=== PATIENT | female | born 1980 | race Caucasian/White ===

== ENCOUNTER 2018-04-13 16:28 | Inpatient (IN) | payer OTHER ==
--- NOTE | 2018-04-13 22:03 | HP ---
CIWA Score - Admission Criteria [facility] Guidelines: Admission for Medically Managed Detox: Requires at least one of the followin. CIWA greater than 12 2. Seizures within the past 24 hours 3. Delirium tremens within the past 24 hours 4. Hallucinations within the past 24 hours 5. Acute intervention needed for co occurring medical disorder 6. Acute intervention needed for co occurring psychiatric disorder 7. Severe withdrawal that cannot be handled at a lower level of care (continued vomiting, continued diarrhea, abnormal vital signs) requiring intravenous medication and/or fluids 8. Admission ROS S - HPI Chief Complaint: SEEKING REHAB SERVICES FOR CANNABIS DEPENDENCE Allergies/Adverse Reactions: Allergies Allergy/AdvReac Type Severity Reaction Status Date / Time No Known Allergies Allergy Verified 04/13/18 21:15 History of Present Illness: 37 Y.O. FEMALE WITH HX/O OPIOID DEPENDENCE AND CANNABIS ABUSE HERE FOR REHAB SERVICES. CLIENT WAS REFERRED BY HER OUTPATIENT COUNSELOR. THIS IS HER FIRST TIME HERE. SHE IS CURRENTLY ON METHADONE 110 MG DAILY. REPORTS LDM TODAY. PENDING VERIFICATION. SHE ATTENDS [facility]. CLIENT REPORTS LONGEST CLEAN TIME IN THE PAST YEAR WAS 3 MONTHS RELAPSING RECENTLY. DENIES SI/HI, AVH, SEIZURE D/O. SHE CURRENTLY LIVES WITH FAMILY. DENIES LEGALS. PMHX- ASTHMA PSYCH- ANXIETY, BIPOLAR, INSOMNIA Exam Limitations: No Limitations - Ebola screening Have you traveled outside of the country in the last 21 days: No (N) Have you had contact with anyone from an Ebola affected area: No Do you have a fever: No - Review of Systems Constitutional: Changes in sleep EENT: reports: No Symptoms Reported Respiratory: reports: No Symptoms reported Cardiac: reports: No Symptoms Reported GI: reports: Constipated, Poor Fluid Intake : reports: No Symptoms Reported Musculoskeletal: reports: Back Pain (CHRONIC) Integumentary: reports: No Symptoms Reported Neuro: reports: Headache (MIGRAINES) Endocrine: reports: No Symptoms Reported Hematology: reports: Easy Bruising Psychiatric: reports: Anxious, Depressed Other Systems: Reviewed and Negative Patient History - Patient Medical History Hx Anemia: No Hx Asthma: Yes Hx Chronic Obstructive Pulmonary Disease (COPD): No Hx Cancer: No Hx Cardiac Disorders: No Hx Congestive Heart Failure: No Hx Hypertension: No Hx Hypercholesterolemia: No Hx Pacemaker: No HX Cerebrovascular Accident: No Hx Seizures: No Hx Dementia: No Hx Diabetes: No Hx Gastrointestinal Disorders: No Hx Liver Disease: No Hx Genitourinary Disorders: No Hx Sexually Transmitted Disorders: No Hx Renal Disease (ESRD): No Hx Thyroid Disease: No Hx Human Immunodeficiency Virus (HIV): No Hx Hepatitis C: No Hx Depression: Yes Hx Suicide Attempt: No Hx Bipolar Disorder: Yes Hx Schizophrenia: No Other Medical History: ANXIETY - Patient Surgical History Past Surgical History: Yes Hx Section: Yes (X3) Anesthesia Reaction: No - PPD History Previous Implant?: Yes Documented Results: Negative w/o proof Implanted On Prior R Admission?: No PPD to be Administered?: Yes - Reproductive History Patient is a Female of Child Bearing Age (11 -55 yrs old): Yes Last Menstrual Period: 04/13/18 LMP comment: IRREG Patient : No (NEG UHCG) - Smoking Cessation Smoking history: Current every day smoker Have you smoked in the past 12 months: Yes Aproximately how many cigarettes per day: 8 Cigars Per Day: 0 Hx Chewing Tobacco Use: No Initiated information on smoking cessation: Yes 'Breaking Loose' booklet given: 04/13/18 - Substance & Tx. History Hx Alcohol Use: Yes Hx Substance Use: Yes Substance Use Type: Alcohol, Heroin, Marijuana, Prescribed (METHADONE) Hx Substance Use Treatment: Yes ([facility]) - Substances Abused THC Route: Smoking Frequency: Daily Amount used: 2 BLUNTS Age of first use: 21 Date of Last Use: 04/12/18 Family Disease History - Family Disease History Family Disease History: Other: Father (HEROIN ADDICITION), Mother (COPD, RA, CIRROHSIS) Admission Physical Exam [facility] - Physical General Appearance: Yes: No Apparent Distress, Appropriately Dressed, Anxious HEENTM: Yes: EOMI, Normocephalic, Normal Voice, [place], Pharynx Normal Respiratory: Yes: Chest Non-Tender, Lungs Clear, Normal Breath Sounds, No Respiratory Distress, No Accessory Muscle Use Neck: Yes: No masses,lesions,Nodules, Supple, Trachea in good position Breast: Yes: Breast Exam Deferred Cardiology: Yes: Regular Rhythm, Regular Rate, S1, S2 Abdominal: Yes: Normal Bowel Sounds, Non Tender, Soft, Protuberent Genitourinary: Yes: Within Normal Limits (NO C/O) Back: Yes: Normal Inspection Musculoskeletal: Yes: full range of Motion, Gait Steady Extremities: Yes: Normal Capillary Refill, Normal Range of Motion, Non-Tender Neurological: Yes: Fully Oriented, Alert, Motor Strength 5/5 Integumentary: Yes: Dry, Warm Lymphatic: Yes: Within Normal Limits - Diagnostic (1) Methadone maintenance therapy patient Current Visit: Yes Status: Chronic (2) Cannabis dependence, uncomplicated Current Visit: Yes Status: Chronic (3) Constipation Current Visit: Yes Status: Acute Qualifiers: Constipation type: drug induced constipation Qualified Code(s): K59.03 - Drug induced constipation (4) Anxiety Current Visit: Yes Status: Suspected (5) Bipolar 1 disorder Current Visit: Yes Status: Suspected (6) Asthma Current Visit: Yes Status: Chronic Qualifiers: Asthma severity: mild Asthma persistence: intermittent Asthma complication type: uncomplicated Qualified Code(s): J45.20 - Mild intermittent asthma, uncomplicated (7) Nicotine dependence Current Visit: Yes Status: Chronic Qualifiers: Nicotine product type: cigarettes Substance use status: uncomplicated Qualified Code(s): F17.210 - Nicotine dependence, cigarettes, uncomplicated Cleared for Admission [facility] - Detox or Rehab Detox Regimen/Protocol: Not Applicable Claeared for Rehab Admission: Yes Inpatient Rehab Admission - Initial Determination Are CD services needed?: Yes Free of communicable disease: Yes Not in need of hospitalization: Yes - Rehab Admission Criteria Previous failed treatment: Yes Poor recovery environment: Yes Comorbidities: Yes Lacks judgement: No Patient is meeting Inpatient Rehab admission criteria:: Yes
[2018-04-13] MEDS ORDERED: hydrOXYzine PAMOATE 50 MG CAPSULE (FP) PO PRN (22:14)
[2018-04-13] MEDS ORDERED: MAGNESIUM CITRATE 300 ML BOTTLE PO PRN (22:14)
[2018-04-13] MEDS ORDERED: LOPERAMIDE HCL 2 MG CAPSULE PO PRN (22:14)
[2018-04-13] MEDS ORDERED: MENTHOL/PHENOL 1 EACH UD MM PRN (22:14)
[2018-04-13] MEDS ORDERED: MAG HYDROX/AL HYDROX/SIMETH 30 ML UNIT-DOSE CUP PO PRN (22:14)
[2018-04-13] MEDS ORDERED: ALBUTEROL SO4 8 GM HFA INHALER IH SCH (22:15)
[2018-04-13] MEDS ORDERED: ALBUTEROL SO4 2.5/IPRATROPIUM 0.5 INH SOL 3 ML VIAL.NEB. NEB PRN (22:16)
[2018-04-13] MEDS ORDERED: ALBUTEROL SO4 8 GM HFA INHALER IH PRN (23:48)
[2018-04-14] MEDS: MELATONIN 5 MG TABLETS PO PRN ×2 (00:07→21:20)
[2018-04-14] MEDS: ACETAMINOPHEN 325 MG TABLET (FP) PO PRN ×2 (06:08→22:39)
[2018-04-14] MEDS: NICOTINE POLACRILEX 2 MG GUM BC PRN ×3 (08:20→17:02)
[2018-04-14] MEDS ORDERED: METHADONE HCL 10 MG TABLET PO SCH (09:00)
[2018-04-14] MEDS: NICOTINE 14 MG/24 HOURS TOPICAL PATCH TD SCH (09:53)
[2018-04-14] MEDS: PRENATAL VITAMINS W/ FOLIC ACID TABLET (FP) PO SCH (09:54)
[2018-04-14 10:37] LABS: HEMATOCRIT 38.1 % (32.4-45.2); HEMOGLOBIN 12.2 GM/dL (10.7-15.3); MCH 32.2 pg (25.7-33.7); MCHC 32.2 g/dl (32.0-36.0); MEAN CELL VOLUME 99.9 fl (80-96); MEAN PLT VOLUME 10.2 fl (7.5-11.1); PLATELET COUNT 134 K/MM3 (134-434); RBC 3.81 M/mm3 (3.60-5.2); RDW 13.1 % (11.6-15.6); WHITE BLOOD COUNT 8.7 K/mm3 (4.0-10.0)
[2018-04-14] MEDS ORDERED: METHADONE HCL 40 MG DISPERSABLE TABLET ONE (10:46)
[2018-04-14] MEDS ORDERED: METHADONE HCL 10 MG TABLET ONE (10:46)
[2018-04-14] MEDS: METHADONE 80 MG, METHADONE 30 MG PO SCH (10:48)
[2018-04-14 10:57] LABS: ALBUMIN 3.3 g/dl (3.4-5.0); ALK PHOS 116 U/L (45-117); ANION GAP 10 MMOL/L (8-16); BILIRUBIN,TOTAL 0.5 mg/dL (0.2-1); BLOOD UREA NITROGEN 13 mg/dL (7-18); CALCIUM 8.4 mg/dL (8.5-10.1); CHLORIDE 100 mmol/L (98-107); CO2 25 mmol/L (21-32); CREATININE 0.7 mg/dL (0.55-1.3); GLUCOSE,RANDOM 114 mg/dL (74-106); SGOT/AST 20 U/L (15-37); SGPT/ALT 27 U/L (13-61); SODIUM 135 mmol/L (136-145); TOT PROT 6.7 g/dl (6.4-8.2)
[2018-04-14] MEDS: IBUPROFEN 400 MG TABLET (FP) PO PRN ×2 (14:28→21:20)
[2018-04-14] MEDS: guaiFENesin/D-METHORPHAN HB 10 ML UNIT-DOSE CUPS PO PRN (14:31)
--- NOTE | 2018-04-14 14:54 | PN ---
[facility] Progress Note Note: Called by nursing staff to order medication for newly admitted patient from [facility]. Medication reconciliation done. Seroquel 100 mg po HS ordered
--- NOTE | 2018-04-14 15:15 | EKG ---
Test Reason : Blood Pressure : / mmHG Vent. Rate : 088 BPM Atrial Rate : 088 BPM P-R Int : 160 ms QRS Dur : 082 ms QT Int : 376 ms P-R-T Axes : 060 063 035 degrees QTc Int : 454 ms NORMAL SINUS RHYTHM NORMAL ECG NO PREVIOUS ECGS AVAILABLE Confirmed by Sina Joya ([id number]) on 04/14/2018 3:15:36 PM Referred By: Confirmed By:Sina Joya
[2018-04-14 19:24] LABS: URINE APPEARANCE CLOUDY; URINE BILIRUBIN NEGATIVE (<2.0 mg/dL); URINE COLOR AMBER; URINE GLUCOSE (UA) NEGATIVE (NEGATIVE); URINE KETONE NEGATIVE (NEGATIVE); URINE LEUK ESTERASE 2+ (NEGATIVE); URINE NITRITE POSITIVE (NEGATIVE); URINE PROTEIN 2+ (NEGATIVE); URINE UROBILINOGEN 4.0 E.U/dl mg/dL (0.2-1.0)
[2018-04-14 19:36] LABS: EPI CELLS RARE /HPF (FEW); URINE BACTERIA MODERATE /hpf (NONE SEEN)
[2018-04-14] MEDS: QUEtiapine FUMARATE 100 MG TABLET (FP) PO SCH (21:19)
[2018-04-14] MEDS: THIAMINE HCL 100 MG TABLET (FP) PO SCH (21:19)
[2018-04-14] MEDS: P-EPHED 60MG/TRIPROLIDI 2.5MG TABLET PO PRN (21:20)
[2018-04-14] MEDS ORDERED: QUEtiapine FUMARATE 100 MG TABLET (FP) PO SCH (22:00)
[2018-04-15] MEDS ORDERED: METHADONE HCL 40 MG DISPERSABLE TABLET ONE (03:30)
[2018-04-15] MEDS ORDERED: METHADONE HCL 10 MG TABLET ONE (03:30)
[2018-04-15] MEDS: METHADONE 80 MG, METHADONE 30 MG PO SCH (06:33)
[2018-04-15] MEDS: ACETAMINOPHEN 325 MG TABLET (FP) PO PRN (06:33)
[2018-04-15] MEDS: NICOTINE POLACRILEX 2 MG GUM BC PRN ×4 (07:06→21:31)
--- NOTE | 2018-04-15 07:16 | PN ---
[facility] Progress Note Note: CLIENT SEEN FOR FOR FEVER 24 hours. NOW WITH C/O HEADACHE, PRESSURE IN HER HEAD WHEN COUGHING AND/OR BENDING OVER, NON PRODUCTIVE COUGH CHILLS. DENIES ANY C/O, SORE THROAT, SOB, RECENT CONTACT WITH ILL PERSONS, . Vital Signs (72 hours) 04/14/18 04/14/18 04/14/18 00:10 01:09 03:54 Temperature 99.2 F Pulse Rate 98 H Respiratory 20 18 18 Rate Blood Pressure 114/80 04/14/18 04/15/18 07:29 03:30 Temperature 101.3 F H Pulse Rate 106 H Respiratory 16 18 Rate Blood Pressure 120/71 Laboratory Tests 04/14/18 04/14/18 04/14/18 08:00 08:00 08:00 WBC 8.7 RBC 3.81 Hgb 12.2 Hct 38.1 MCV 99.9 H MCH 32.2 MCHC 32.2 RDW 13.1 Plt Count 134 MPV 10.2 Sodium 135 L Potassium 4.0 Chloride 100 Carbon Dioxide 25 Anion Gap 10 BUN 13 Creatinine 0.7 Creat Clearance w eGFR > 60 Random Glucose 114 H Calcium 8.4 L Total Bilirubin 0.5 AST 20 ALT 27 Alkaline Phosphatase 116 Total Protein 6.7 Albumin 3.3 L Urine Color Urine Appearance Urine pH Ur Specific [place] Urine Protein Urine Glucose (UA) Urine Ketones Urine Blood Urine Nitrite Urine Bilirubin Urine Urobilinogen Ur Leukocyte Esterase Urine WBC (Auto) Urine RBC (Auto) Ur Epithelial Cells Urine Bacteria RPR Titer Nonreactive 04/14/18 17:30 WBC RBC Hgb Hct MCV MCH MCHC RDW Plt Count MPV Sodium Potassium Chloride Carbon Dioxide Anion Gap BUN Creatinine Creat Clearance w eGFR Random Glucose Calcium Total Bilirubin AST ALT Alkaline Phosphatase Total Protein Albumin Urine Color Sherri Urine Appearance Cloudy Urine pH 5.0 Ur Specific [place] 1.025 Urine Protein 2+ H Urine Glucose (UA) Negative Urine Ketones Negative Urine Blood 3+ H Urine Nitrite Positive Urine Bilirubin Negative Urine Urobilinogen 4.0 e.u/dl H Ur Leukocyte Esterase 2+ H Urine WBC (Auto) 299 Urine RBC (Auto) 2404 Ur Epithelial Cells Rare Urine Bacteria Moderate RPR Titer EXAMINED AT BEDSIDE A/O X3 NAD SKIN IS WARM FLUSHED AND MOIST HEAD- + TENDERNESS TO SINUSES ON PALPATION, PERFORATED SEPTUM THROAT- MMM NO REDNESS OR EXUDATE NECK - NEG LAD CV RR TACHY, S1, S2 LUNGS- CTAB LABS NOTED CLIENT IS CURRENTLY ON MENSES. P-CONTINUE TO MONITOR ANTIPYRETICS INCREASE PO FLUIDS START Z- PACK FOR POSSIBLE SINUSITIS
[2018-04-15] MEDS ORDERED: AZITHROMYCIN 250 MG TABLET PO ONE (07:52)
[2018-04-15] MEDS: PRENATAL VITAMINS W/ FOLIC ACID TABLET (FP) PO SCH (10:44)
[2018-04-15] MEDS: NICOTINE 14 MG/24 HOURS TOPICAL PATCH TD SCH (10:44)
[2018-04-15] MEDS: guaiFENesin/D-METHORPHAN HB 10 ML UNIT-DOSE CUPS PO PRN ×2 (10:47→21:30)
[2018-04-15] MEDS: MAGNESIUM HYDROX 2400MG/30ML ORAL SUSPENSION 30 ML CUP PO PRN (10:48)
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
[2018-04-15] MEDS: hydrOXYzine PAMOATE 50 MG CAPSULE (FP) PO PRN ×2 (15:41→19:54)
[2018-04-15] MEDS: THIAMINE HCL 100 MG TABLET (FP) PO SCH (21:29)
[2018-04-15] MEDS: QUEtiapine FUMARATE 100 MG TABLET (FP) PO SCH (21:29)
[2018-04-15] MEDS: IBUPROFEN 400 MG TABLET (FP) PO PRN (21:29)
[2018-04-16] MEDS ORDERED: METHADONE HCL 40 MG DISPERSABLE TABLET ONE (03:17)
[2018-04-16] MEDS ORDERED: METHADONE HCL 10 MG TABLET ONE (03:17)
[2018-04-16] MEDS: METHADONE 80 MG, METHADONE 30 MG PO SCH (06:29)
[2018-04-16] MEDS: hydrOXYzine PAMOATE 50 MG CAPSULE (FP) PO PRN ×3 (06:31→21:48)
[2018-04-16] MEDS: guaiFENesin/D-METHORPHAN HB 10 ML UNIT-DOSE CUPS PO PRN ×2 (06:31→21:48)
[2018-04-16] MEDS: IBUPROFEN 400 MG TABLET (FP) PO PRN ×2 (06:31→13:59)
[2018-04-16] MEDS: NICOTINE POLACRILEX 2 MG GUM BC PRN ×4 (06:33→21:49)
[2018-04-16] MEDS: PRENATAL VITAMINS W/ FOLIC ACID TABLET (FP) PO SCH (10:41)
[2018-04-16] MEDS: AZITHROMYCIN 250 MG TABLET PO SCH (10:41)
[2018-04-16] MEDS: NICOTINE 14 MG/24 HOURS TOPICAL PATCH TD SCH (10:41)
[2018-04-16] MEDS: MAGNESIUM HYDROX 2400MG/30ML ORAL SUSPENSION 30 ML CUP PO PRN (13:58)
[2018-04-16] MEDS: QUEtiapine FUMARATE 100 MG TABLET (FP) PO SCH (21:45)
[2018-04-16] MEDS: THIAMINE HCL 100 MG TABLET (FP) PO SCH (21:45)
[2018-04-16] MEDS: ACETAMINOPHEN 325 MG TABLET (FP) PO PRN (21:48)
[2018-04-17] MEDS ORDERED: METHADONE HCL 10 MG TABLET ONE (05:58)
[2018-04-17] MEDS ORDERED: METHADONE HCL 40 MG DISPERSABLE TABLET ONE (05:59)
[2018-04-17] MEDS: METHADONE 80 MG, METHADONE 30 MG PO SCH (06:27)
[2018-04-17] MEDS: hydrOXYzine PAMOATE 50 MG CAPSULE (FP) PO PRN (06:30)
[2018-04-17] MEDS: NICOTINE POLACRILEX 2 MG GUM BC PRN ×3 (06:32→14:33)
[2018-04-17] MEDS: PRENATAL VITAMINS W/ FOLIC ACID TABLET (FP) PO SCH (10:39)
[2018-04-17] MEDS: NICOTINE 14 MG/24 HOURS TOPICAL PATCH TD SCH (10:39)
[2018-04-17] MEDS: AZITHROMYCIN 250 MG TABLET PO SCH (10:39)
[2018-04-17] MEDS: ACETAMINOPHEN 325 MG TABLET (FP) PO PRN ×2 (10:43→21:54)
[2018-04-17] MEDS: guaiFENesin/D-METHORPHAN HB 10 ML UNIT-DOSE CUPS PO PRN ×2 (10:43→21:55)
[2018-04-17] MEDS: LIDOCAINE 5% TOPICAL PATCH TP SCH (15:54)
[2018-04-17] MEDS: THIAMINE HCL 100 MG TABLET (FP) PO SCH (21:51)
[2018-04-17] MEDS: LIDOCAINE PATCH REMOVAL MC SCH (21:51)
[2018-04-17] MEDS: QUEtiapine FUMARATE 100 MG TABLET (FP) PO SCH (21:51)
[2018-04-17] MEDS: P-EPHED 60MG/TRIPROLIDI 2.5MG TABLET PO PRN (21:55)
[2018-04-18] MEDS ORDERED: METHADONE HCL 40 MG DISPERSABLE TABLET ONE (03:24)
[2018-04-18] MEDS ORDERED: METHADONE HCL 10 MG TABLET ONE (03:24)
[2018-04-18] MEDS: METHADONE 80 MG, METHADONE 30 MG PO SCH (06:30)
[2018-04-18] MEDS: NICOTINE POLACRILEX 2 MG GUM BC PRN ×5 (06:32→18:00)
[2018-04-18] MEDS: NICOTINE 14 MG/24 HOURS TOPICAL PATCH TD SCH (10:40)
[2018-04-18] MEDS: PRENATAL VITAMINS W/ FOLIC ACID TABLET (FP) PO SCH (10:40)
[2018-04-18] MEDS: LIDOCAINE 5% TOPICAL PATCH TP SCH (10:40)
[2018-04-18] MEDS: AZITHROMYCIN 250 MG TABLET PO SCH (10:40)
[2018-04-18] MEDS: guaiFENesin/D-METHORPHAN HB 10 ML UNIT-DOSE CUPS PO PRN ×2 (10:43→21:35)
[2018-04-18] MEDS: hydrOXYzine PAMOATE 50 MG CAPSULE (FP) PO PRN ×2 (15:26→21:35)
--- NOTE | 2018-04-18 18:04 | PN ---
[facility] Progress Note Note: Psychiatry Attending's on-call note : Called to adjust patient's medication. Complaint : insomnia. Met with Ms Suarez. Seroquel 100 mg/hs : not effective. According to patient. Wants dose increase. Made aware of risk of metabolic syndrome. Seroquel is increased to 150 mg po hs. Patient agrees to this careplan.
[2018-04-18] MEDS: QUEtiapine FUMARATE 50 MG TABLET PO SCH (21:34)
[2018-04-18] MEDS: LIDOCAINE PATCH REMOVAL MC SCH (21:34)
[2018-04-18] MEDS: THIAMINE HCL 100 MG TABLET (FP) PO SCH (21:35)
[2018-04-18] MEDS: MELATONIN 5 MG TABLETS PO PRN (21:35)
[2018-04-18] MEDS ORDERED: TUBERCULIN PPD 5 TU/0.1ML VIAL ID ONE (23:08)
[2018-04-19] MEDS ORDERED: METHADONE HCL 10 MG TABLET ONE (05:59)
[2018-04-19] MEDS ORDERED: METHADONE HCL 40 MG DISPERSABLE TABLET ONE (05:59)
[2018-04-19] MEDS: METHADONE 80 MG, METHADONE 30 MG PO SCH (06:24)
[2018-04-19] MEDS: NICOTINE POLACRILEX 2 MG GUM BC PRN ×4 (06:26→21:51)
[2018-04-19] MEDS: hydrOXYzine PAMOATE 50 MG CAPSULE (FP) PO PRN ×3 (06:26→21:50)
[2018-04-19] MEDS: NICOTINE 14 MG/24 HOURS TOPICAL PATCH TD SCH (10:35)
[2018-04-19] MEDS: LIDOCAINE 5% TOPICAL PATCH TP SCH (10:35)
[2018-04-19] MEDS: AZITHROMYCIN 250 MG TABLET PO SCH (10:36)
[2018-04-19] MEDS: PRENATAL VITAMINS W/ FOLIC ACID TABLET (FP) PO SCH (10:36)
[2018-04-19] MEDS: MAGNESIUM HYDROX 2400MG/30ML ORAL SUSPENSION 30 ML CUP PO PRN (10:38)
[2018-04-19] MEDS: guaiFENesin/D-METHORPHAN HB 10 ML UNIT-DOSE CUPS PO PRN (10:40)
--- NOTE | 2018-04-19 12:40 | PN ---
[facility] Progress Note Note: stye of right upper eyelid for 2 days, tobramycin oph slon 0.3 % 1 gtt to right eye q 6 h observation
[2018-04-19] MEDS ORDERED: PT OWN MED DRAWER 7, Y5N ONE ×2 (14:57→18:20)
[2018-04-19] MEDS: TOBRAMYCIN 0.3% OPHTH SOLN 5 ML BOTTLE OD SCH (18:21)
[2018-04-19] MEDS: LIDOCAINE PATCH REMOVAL MC SCH (21:49)
[2018-04-19] MEDS: THIAMINE HCL 100 MG TABLET (FP) PO SCH (21:49)
[2018-04-19] MEDS: QUEtiapine FUMARATE 50 MG TABLET PO SCH (21:49)
[2018-04-19] MEDS: MELATONIN 5 MG TABLETS PO PRN (21:50)
[2018-04-20] MEDS: TOBRAMYCIN 0.3% OPHTH SOLN 5 ML BOTTLE OD SCH ×5 (01:20→23:11)
[2018-04-20] MEDS: IBUPROFEN 400 MG TABLET (FP) PO PRN (01:21)
[2018-04-20] MEDS ORDERED: METHADONE HCL 10 MG TABLET ONE (03:30)
[2018-04-20] MEDS ORDERED: METHADONE HCL 40 MG DISPERSABLE TABLET ONE (03:30)
[2018-04-20] MEDS: METHADONE 80 MG, METHADONE 30 MG PO SCH (06:33)
[2018-04-20] MEDS: hydrOXYzine PAMOATE 50 MG CAPSULE (FP) PO PRN ×3 (06:36→21:22)
[2018-04-20] MEDS: guaiFENesin/D-METHORPHAN HB 10 ML UNIT-DOSE CUPS PO PRN ×2 (06:36→21:22)
[2018-04-20] MEDS: NICOTINE POLACRILEX 2 MG GUM BC PRN ×5 (06:36→21:24)
[2018-04-20] MEDS: NICOTINE 14 MG/24 HOURS TOPICAL PATCH TD SCH (10:36)
[2018-04-20] MEDS: LIDOCAINE 5% TOPICAL PATCH TP SCH (10:36)
[2018-04-20] MEDS: PRENATAL VITAMINS W/ FOLIC ACID TABLET (FP) PO SCH (10:36)
[2018-04-20] MEDS: ERYTHROMYCIN 0.5% OPHTHALMIC OINTMENT 3.5 GM TUBE OU SCH (15:55)
[2018-04-20] MEDS ORDERED: PT OWN MED DRAWER 7, Y5N ONE (17:25)
[2018-04-20] MEDS: THIAMINE HCL 100 MG TABLET (FP) PO SCH (21:19)
[2018-04-20] MEDS: QUEtiapine FUMARATE 50 MG TABLET PO SCH (21:20)
[2018-04-20] MEDS: LIDOCAINE PATCH REMOVAL MC SCH (21:20)
[2018-04-20] MEDS: MELATONIN 5 MG TABLETS PO PRN (21:22)
[2018-04-21] MEDS ORDERED: METHADONE HCL 10 MG TABLET ONE (05:56)
[2018-04-21] MEDS ORDERED: METHADONE HCL 40 MG DISPERSABLE TABLET ONE (05:56)
[2018-04-21] MEDS: METHADONE 80 MG, METHADONE 30 MG PO SCH (06:33)
[2018-04-21] MEDS: TOBRAMYCIN 0.3% OPHTH SOLN 5 ML BOTTLE OD SCH ×3 (06:34→18:20)
[2018-04-21] MEDS: NICOTINE POLACRILEX 2 MG GUM BC PRN ×5 (06:38→21:15)
[2018-04-21] MEDS: PRENATAL VITAMINS W/ FOLIC ACID TABLET (FP) PO SCH (10:31)
[2018-04-21] MEDS: NICOTINE 14 MG/24 HOURS TOPICAL PATCH TD SCH (10:32)
[2018-04-21] MEDS: ERYTHROMYCIN 0.5% OPHTHALMIC OINTMENT 3.5 GM TUBE OU SCH (10:32)
[2018-04-21] MEDS: LIDOCAINE 5% TOPICAL PATCH TP SCH (10:32)
[2018-04-21] MEDS: hydrOXYzine PAMOATE 50 MG CAPSULE (FP) PO PRN ×2 (10:33→19:21)
[2018-04-21] MEDS: guaiFENesin/D-METHORPHAN HB 10 ML UNIT-DOSE CUPS PO PRN (19:24)
[2018-04-21] MEDS: QUEtiapine FUMARATE 50 MG TABLET PO SCH (21:13)
[2018-04-21] MEDS: THIAMINE HCL 100 MG TABLET (FP) PO SCH (21:13)
[2018-04-21] MEDS: MELATONIN 5 MG TABLETS PO PRN (21:14)
[2018-04-21] MEDS: LIDOCAINE PATCH REMOVAL MC SCH (21:14)
[2018-04-21] MEDS ORDERED: PT OWN MED DRAWER 7, Y5N ONE (23:52)
[2018-04-22] MEDS: TOBRAMYCIN 0.3% OPHTH SOLN 5 ML BOTTLE OD SCH ×4 (00:15→18:30)
[2018-04-22] MEDS ORDERED: METHADONE HCL 40 MG DISPERSABLE TABLET ONE (05:51)
[2018-04-22] MEDS ORDERED: METHADONE HCL 10 MG TABLET ONE (05:51)
[2018-04-22] MEDS: METHADONE 80 MG, METHADONE 30 MG PO SCH (06:37)
[2018-04-22] MEDS: NICOTINE POLACRILEX 2 MG GUM BC PRN ×3 (06:38→13:41)
[2018-04-22] MEDS: TRIMETHOBENZAMIDE HCL 200MG/2ML INJ IM PRN ×2 (07:18→13:21)
[2018-04-22] MEDS ORDERED: CYCLOBENZAPRINE HCL 10 MG TABLET (FP) PO ONE (09:05)
[2018-04-22] MEDS ORDERED: cloNIDine HCL 0.1 MG TABLET PO ONE (09:05)
--- NOTE | 2018-04-22 09:09 | PN ---
[facility] Progress Note Note: withdrawal symptom vomiting,aching pain,receiving tigan im will give flexeril 10 mgs po,clonidine 0.1 mg po now close monitoring
[2018-04-22] MEDS: LIDOCAINE 5% TOPICAL PATCH TP SCH (10:05)
[2018-04-22] MEDS: PRENATAL VITAMINS W/ FOLIC ACID TABLET (FP) PO SCH (10:05)
[2018-04-22] MEDS: NICOTINE 14 MG/24 HOURS TOPICAL PATCH TD SCH (10:05)
[2018-04-22] MEDS: hydrOXYzine PAMOATE 50 MG CAPSULE (FP) PO PRN ×3 (10:06→21:41)
[2018-04-22] MEDS: ERYTHROMYCIN 0.5% OPHTHALMIC OINTMENT 3.5 GM TUBE OU SCH (10:07)
[2018-04-22] MEDS ORDERED: PT OWN MED DRAWER 7, Y5N ONE (16:47)
[2018-04-22] MEDS: CYCLOBENZAPRINE HCL 10 MG TABLET (FP) PO PRN (21:41)
[2018-04-22] MEDS: QUEtiapine FUMARATE 50 MG TABLET PO SCH (21:41)
[2018-04-22] MEDS: LIDOCAINE PATCH REMOVAL MC SCH (21:41)
[2018-04-22] MEDS: MELATONIN 5 MG TABLETS PO PRN (21:41)
[2018-04-22] MEDS: THIAMINE HCL 100 MG TABLET (FP) PO SCH (22:35)
[2018-04-22] MEDS: cloNIDine HCL 0.1 MG TABLET PO SCH (23:54)
[2018-04-23] MEDS: TOBRAMYCIN 0.3% OPHTH SOLN 5 ML BOTTLE OD SCH ×5 (01:01→23:33)
[2018-04-23] MEDS ORDERED: METHADONE HCL 40 MG DISPERSABLE TABLET ONE (03:13)
[2018-04-23] MEDS ORDERED: METHADONE HCL 10 MG TABLET ONE (03:13)
[2018-04-23] MEDS: METHADONE 80 MG, METHADONE 30 MG PO SCH (06:13)
[2018-04-23] MEDS: hydrOXYzine PAMOATE 50 MG CAPSULE (FP) PO PRN ×4 (06:14→21:27)
[2018-04-23] MEDS: NICOTINE POLACRILEX 2 MG GUM BC PRN ×3 (06:15→13:53)
[2018-04-23] MEDS ORDERED: PT OWN MED DRAWER 7, Y5N ONE ×3 (06:16→18:15)
[2018-04-23] MEDS: TRIMETHOBENZAMIDE HCL 200MG/2ML INJ IM PRN ×2 (07:13→13:53)
[2018-04-23] MEDS: LIDOCAINE 5% TOPICAL PATCH TP SCH (10:22)
[2018-04-23] MEDS: PRENATAL VITAMINS W/ FOLIC ACID TABLET (FP) PO SCH (10:23)
[2018-04-23] MEDS: NICOTINE 14 MG/24 HOURS TOPICAL PATCH TD SCH (10:23)
[2018-04-23] MEDS: cloNIDine HCL 0.1 MG TABLET PO SCH ×2 (10:23→21:25)
[2018-04-23] MEDS: ERYTHROMYCIN 0.5% OPHTHALMIC OINTMENT 3.5 GM TUBE OU SCH (10:23)
--- NOTE | 2018-04-23 14:48 | PN ---
[facility] Progress Note Note: Patient reports ongoing sleeping difficulties,inability to fall sleep, interrupted sleep pattern.She reports good response to TRazodone in the past.Properties of Trazodone has been discussed with the patient.Trazodone 100 mg po hs will be started tonight.
[2018-04-23] MEDS: LIDOCAINE PATCH REMOVAL MC SCH (21:24)
[2018-04-23] MEDS: THIAMINE HCL 100 MG TABLET (FP) PO SCH (21:24)
[2018-04-23] MEDS: QUEtiapine FUMARATE 50 MG TABLET PO SCH (21:24)
[2018-04-23] MEDS: traZODone HCL 100 MG TABLET (FP) PO SCH (21:26)
[2018-04-24] MEDS ORDERED: METHADONE HCL 10 MG TABLET ONE (03:26)
[2018-04-24] MEDS ORDERED: METHADONE HCL 40 MG DISPERSABLE TABLET ONE (03:26)
[2018-04-24] MEDS: METHADONE 80 MG, METHADONE 30 MG PO SCH (06:12)
[2018-04-24] MEDS ORDERED: PT OWN MED DRAWER 7, Y5N ONE ×2 (06:14→18:50)
[2018-04-24] MEDS: TOBRAMYCIN 0.3% OPHTH SOLN 5 ML BOTTLE OD SCH ×4 (06:15→23:46)
[2018-04-24] MEDS: TRIMETHOBENZAMIDE HCL 200MG/2ML INJ IM PRN ×3 (06:15→22:21)
[2018-04-24] MEDS: NICOTINE POLACRILEX 2 MG GUM BC PRN ×5 (06:16→18:54)
[2018-04-24] MEDS: hydrOXYzine PAMOATE 50 MG CAPSULE (FP) PO PRN ×3 (09:03→18:53)
[2018-04-24] MEDS: NICOTINE 14 MG/24 HOURS TOPICAL PATCH TD SCH (10:42)
[2018-04-24] MEDS: PRENATAL VITAMINS W/ FOLIC ACID TABLET (FP) PO SCH (10:42)
[2018-04-24] MEDS: LIDOCAINE 5% TOPICAL PATCH TP SCH (10:43)
[2018-04-24] MEDS: ERYTHROMYCIN 0.5% OPHTHALMIC OINTMENT 3.5 GM TUBE OU SCH (10:43)
[2018-04-24] MEDS: cloNIDine HCL 0.1 MG TABLET PO SCH ×2 (10:44→22:00)
[2018-04-24] MEDS: QUEtiapine FUMARATE 50 MG TABLET PO SCH (21:54)
[2018-04-24] MEDS: THIAMINE HCL 100 MG TABLET (FP) PO SCH (21:54)
[2018-04-24] MEDS: traZODone HCL 100 MG TABLET (FP) PO SCH (21:54)
[2018-04-24] MEDS: LIDOCAINE PATCH REMOVAL MC SCH (21:54)
[2018-04-24] MEDS: MELATONIN 5 MG TABLETS PO PRN (21:55)
[2018-04-25] MEDS ORDERED: METHADONE HCL 10 MG TABLET ONE (03:33)
[2018-04-25] MEDS ORDERED: METHADONE HCL 40 MG DISPERSABLE TABLET ONE (03:34)
[2018-04-25] MEDS: METHADONE 80 MG, METHADONE 30 MG PO SCH (06:23)
[2018-04-25] MEDS: TOBRAMYCIN 0.3% OPHTH SOLN 5 ML BOTTLE OD SCH ×4 (06:23→23:29)
[2018-04-25] MEDS: NICOTINE POLACRILEX 2 MG GUM BC PRN ×4 (06:25→17:59)
[2018-04-25] MEDS: TRIMETHOBENZAMIDE HCL 200MG/2ML INJ IM PRN ×2 (07:35→18:18)
[2018-04-25] MEDS ORDERED: PT OWN MED DRAWER 7, Y5N ONE ×2 (08:45→11:49)
[2018-04-25] MEDS: hydrOXYzine PAMOATE 50 MG CAPSULE (FP) PO PRN ×3 (10:12→21:22)
[2018-04-25] MEDS: LIDOCAINE 5% TOPICAL PATCH TP SCH (10:12)
[2018-04-25] MEDS: PRENATAL VITAMINS W/ FOLIC ACID TABLET (FP) PO SCH (10:12)
[2018-04-25] MEDS: NICOTINE 14 MG/24 HOURS TOPICAL PATCH TD SCH (10:12)
[2018-04-25] MEDS: cloNIDine HCL 0.1 MG TABLET PO SCH (10:12)
[2018-04-25] MEDS: ERYTHROMYCIN 0.5% OPHTHALMIC OINTMENT 3.5 GM TUBE OU SCH (10:13)
--- NOTE | 2018-04-25 20:46 | PN ---
[facility] Progress Note Note: Patient requested to taper her methadone 110 mg po daily to 80 mg po daily to enable her get into the aftercare program of her choice. A letter of authorization by Dr. Chappell was faxed to this program instructing [facility] to taper patient as stipulated in the letter(copy in patient's chart).
[2018-04-25] MEDS: MELATONIN 5 MG TABLETS PO PRN (21:22)
[2018-04-25] MEDS: traZODone HCL 100 MG TABLET (FP) PO SCH (21:22)
[2018-04-25] MEDS: QUEtiapine FUMARATE 50 MG TABLET PO SCH (21:22)
[2018-04-25] MEDS: LIDOCAINE PATCH REMOVAL MC SCH (21:22)
[2018-04-25] MEDS: THIAMINE HCL 100 MG TABLET (FP) PO SCH (21:22)
[2018-04-26] MEDS ORDERED: METHADONE HCL 10 MG TABLET PO SCH (06:00)
[2018-04-26] MEDS ORDERED: METHADONE HCL 10 MG TABLET ONE (06:28)
[2018-04-26] MEDS: METHADONE 80 MG, METHADONE 20 MG PO SCH (06:29)
[2018-04-26] MEDS ORDERED: METHADONE HCL 40 MG DISPERSABLE TABLET ONE (06:29)
[2018-04-26] MEDS: TOBRAMYCIN 0.3% OPHTH SOLN 5 ML BOTTLE OD SCH ×4 (06:29→23:00)
[2018-04-26] MEDS: hydrOXYzine PAMOATE 50 MG CAPSULE (FP) PO PRN ×4 (06:32→21:06)
[2018-04-26] MEDS: NICOTINE POLACRILEX 2 MG GUM BC PRN ×4 (06:32→15:53)
[2018-04-26] MEDS: TRIMETHOBENZAMIDE HCL 200MG/2ML INJ IM PRN ×2 (09:06→18:26)
[2018-04-26] MEDS: LIDOCAINE 5% TOPICAL PATCH TP SCH (10:20)
[2018-04-26] MEDS: ERYTHROMYCIN 0.5% OPHTHALMIC OINTMENT 3.5 GM TUBE OU SCH (10:20)
[2018-04-26] MEDS: NICOTINE 14 MG/24 HOURS TOPICAL PATCH TD SCH (10:20)
[2018-04-26] MEDS: IBUPROFEN 400 MG TABLET (FP) PO PRN (10:21)
[2018-04-26] MEDS: PRENATAL VITAMINS W/ FOLIC ACID TABLET (FP) PO SCH (10:21)
[2018-04-26] MEDS ORDERED: ONDANSETRON *ODT* 4 MG TABLET SL PRN (18:15)
[2018-04-26] MEDS: QUEtiapine FUMARATE 50 MG TABLET PO SCH (21:06)
[2018-04-26] MEDS: traZODone HCL 100 MG TABLET (FP) PO SCH (21:06)
[2018-04-26] MEDS: THIAMINE HCL 100 MG TABLET (FP) PO SCH (21:06)
[2018-04-26] MEDS: MELATONIN 5 MG TABLETS PO PRN (21:09)
[2018-04-26] MEDS: LIDOCAINE PATCH REMOVAL MC SCH (21:09)
[2018-04-27] MEDS ORDERED: METHADONE HCL 40 MG DISPERSABLE TABLET ONE (05:51)
[2018-04-27] MEDS ORDERED: METHADONE HCL 10 MG TABLET ONE (05:51)
[2018-04-27] MEDS: METHADONE 80 MG, METHADONE 20 MG PO SCH (06:14)
[2018-04-27] MEDS: TOBRAMYCIN 0.3% OPHTH SOLN 5 ML BOTTLE OD SCH ×4 (06:15→23:51)
[2018-04-27] MEDS: hydrOXYzine PAMOATE 50 MG CAPSULE (FP) PO PRN ×4 (06:16→21:21)
[2018-04-27] MEDS: NICOTINE POLACRILEX 2 MG GUM BC PRN ×3 (06:16→18:49)
[2018-04-27] MEDS ORDERED: PT OWN MED DRAWER 7, Y5N ONE (08:54)
[2018-04-27] MEDS: ERYTHROMYCIN 0.5% OPHTHALMIC OINTMENT 3.5 GM TUBE OU SCH (10:19)
[2018-04-27] MEDS: PRENATAL VITAMINS W/ FOLIC ACID TABLET (FP) PO SCH (10:19)
[2018-04-27] MEDS: NICOTINE 14 MG/24 HOURS TOPICAL PATCH TD SCH (10:20)
[2018-04-27] MEDS: LIDOCAINE 5% TOPICAL PATCH TP SCH (10:21)
[2018-04-27] MEDS: ACETAMINOPHEN 325 MG TABLET (FP) PO PRN (10:22)
[2018-04-27] MEDS: P-EPHED 60MG/TRIPROLIDI 2.5MG TABLET PO PRN ×2 (14:29→21:23)
[2018-04-27] MEDS: METHYL SALICYLATE/MENTHOL OINT 30 GM TUBE TP SCH (21:20)
[2018-04-27] MEDS: THIAMINE HCL 100 MG TABLET (FP) PO SCH (21:21)
[2018-04-27] MEDS: QUEtiapine FUMARATE 50 MG TABLET PO SCH (21:21)
[2018-04-27] MEDS: CYCLOBENZAPRINE HCL 10 MG TABLET (FP) PO PRN (21:21)
[2018-04-27] MEDS: LIDOCAINE PATCH REMOVAL MC SCH (21:22)
[2018-04-27] MEDS: traZODone HCL 100 MG TABLET (FP) PO SCH (21:22)
[2018-04-28] MEDS ORDERED: METHADONE HCL 10 MG TABLET ONE (03:00)
[2018-04-28] MEDS ORDERED: METHADONE HCL 40 MG DISPERSABLE TABLET ONE (03:01)
[2018-04-28] MEDS: METHADONE 80 MG, METHADONE 20 MG PO SCH (06:37)
[2018-04-28] MEDS ORDERED: PT OWN MED DRAWER 7, Y5N ONE ×5 (06:40→22:51)
[2018-04-28] MEDS: hydrOXYzine PAMOATE 50 MG CAPSULE (FP) PO PRN ×3 (06:40→21:40)
[2018-04-28] MEDS: TOBRAMYCIN 0.3% OPHTH SOLN 5 ML BOTTLE OD SCH ×4 (06:40→23:52)
[2018-04-28] MEDS: PRENATAL VITAMINS W/ FOLIC ACID TABLET (FP) PO SCH (10:39)
[2018-04-28] MEDS: P-EPHED 60MG/TRIPROLIDI 2.5MG TABLET PO PRN (10:42)
[2018-04-28] MEDS: NICOTINE 14 MG/24 HOURS TOPICAL PATCH TD SCH (10:42)
[2018-04-28] MEDS: NICOTINE POLACRILEX 2 MG GUM BC PRN ×3 (10:43→18:00)
[2018-04-28] MEDS: LIDOCAINE 5% TOPICAL PATCH TP SCH (10:43)
[2018-04-28] MEDS: ERYTHROMYCIN 0.5% OPHTHALMIC OINTMENT 3.5 GM TUBE OU SCH (10:44)
[2018-04-28] MEDS: METHYL SALICYLATE/MENTHOL OINT 30 GM TUBE TP SCH ×2 (10:44→21:39)
[2018-04-28] MEDS: THIAMINE HCL 100 MG TABLET (FP) PO SCH (21:39)
[2018-04-28] MEDS: LIDOCAINE PATCH REMOVAL MC SCH (21:39)
[2018-04-28] MEDS: traZODone HCL 100 MG TABLET (FP) PO SCH (21:39)
[2018-04-28] MEDS: QUEtiapine FUMARATE 50 MG TABLET PO SCH (21:39)
[2018-04-28] MEDS: MELATONIN 5 MG TABLETS PO PRN (21:40)
[2018-04-29] MEDS ORDERED: METHADONE HCL 10 MG TABLET PO SCH (06:00)
[2018-04-29] MEDS ORDERED: METHADONE HCL 5 MG TABLET ONE (06:40)
[2018-04-29] MEDS ORDERED: PT OWN MED DRAWER 7, Y5N ONE ×3 (06:41→08:33)
[2018-04-29] MEDS ORDERED: METHADONE HCL 40 MG DISPERSABLE TABLET ONE (06:41)
[2018-04-29] MEDS ORDERED: METHADONE HCL 10 MG TABLET ONE (06:41)
[2018-04-29] MEDS: METHADONE 80 MG, METHADONE 10 MG, METHADONE 5 MG PO SCH (06:42)
[2018-04-29] MEDS: TOBRAMYCIN 0.3% OPHTH SOLN 5 ML BOTTLE OD SCH ×4 (06:42→23:25)
[2018-04-29] MEDS: NICOTINE POLACRILEX 2 MG GUM BC PRN ×4 (06:44→21:25)
[2018-04-29] MEDS: hydrOXYzine PAMOATE 50 MG CAPSULE (FP) PO PRN ×3 (06:44→21:24)
[2018-04-29] MEDS: LIDOCAINE 5% TOPICAL PATCH TP SCH (10:32)
[2018-04-29] MEDS: P-EPHED 60MG/TRIPROLIDI 2.5MG TABLET PO PRN (10:33)
[2018-04-29] MEDS: PRENATAL VITAMINS W/ FOLIC ACID TABLET (FP) PO SCH (10:34)
[2018-04-29] MEDS: NICOTINE 14 MG/24 HOURS TOPICAL PATCH TD SCH (10:35)
[2018-04-29] MEDS: ERYTHROMYCIN 0.5% OPHTHALMIC OINTMENT 3.5 GM TUBE OU SCH (10:35)
[2018-04-29] MEDS: METHYL SALICYLATE/MENTHOL OINT 30 GM TUBE TP SCH ×2 (10:36→21:21)
--- NOTE | 2018-04-29 18:03 | PN ---
[facility] Progress Note Note: hydrocortisone ordered for itching from rash under L breast. Pt had prn vistaril earlier
[2018-04-29] MEDS: traZODone HCL 100 MG TABLET (FP) PO SCH (21:21)
[2018-04-29] MEDS: QUEtiapine FUMARATE 50 MG TABLET PO SCH (21:21)
[2018-04-29] MEDS: THIAMINE HCL 100 MG TABLET (FP) PO SCH (21:21)
[2018-04-29] MEDS: LIDOCAINE PATCH REMOVAL MC SCH (21:22)
[2018-04-29] MEDS: HYDROCORTISONE 1% TOPICAL OINT 30 GM TUBE TP SCH (21:23)
[2018-04-29] MEDS: guaiFENesin/D-METHORPHAN HB 10 ML UNIT-DOSE CUPS PO PRN (21:23)
[2018-04-29] MEDS: MELATONIN 5 MG TABLETS PO PRN (21:24)
[2018-04-30] MEDS ORDERED: METHADONE HCL 5 MG TABLET ONE (03:09)
[2018-04-30] MEDS ORDERED: METHADONE HCL 40 MG DISPERSABLE TABLET ONE (03:10)
[2018-04-30] MEDS ORDERED: METHADONE HCL 10 MG TABLET ONE (03:10)
[2018-04-30] MEDS: METHADONE 80 MG, METHADONE 10 MG, METHADONE 5 MG PO SCH (06:39)
[2018-04-30] MEDS: hydrOXYzine PAMOATE 50 MG CAPSULE (FP) PO PRN ×2 (06:40→21:04)
[2018-04-30] MEDS: TOBRAMYCIN 0.3% OPHTH SOLN 5 ML BOTTLE OD SCH ×3 (06:41→18:06)
[2018-04-30] MEDS: NICOTINE POLACRILEX 2 MG GUM BC PRN ×5 (06:41→23:05)
[2018-04-30] MEDS ORDERED: PT OWN MED DRAWER 7, Y5N ONE ×2 (06:42→12:10)
[2018-04-30] MEDS: P-EPHED 60MG/TRIPROLIDI 2.5MG TABLET PO PRN ×2 (08:33→21:04)
[2018-04-30] MEDS: guaiFENesin/D-METHORPHAN HB 10 ML UNIT-DOSE CUPS PO PRN ×2 (08:35→21:07)
[2018-04-30] MEDS: ACETAMINOPHEN 325 MG TABLET (FP) PO PRN (08:36)
[2018-04-30] MEDS: PRENATAL VITAMINS W/ FOLIC ACID TABLET (FP) PO SCH (10:42)
[2018-04-30] MEDS: LIDOCAINE 5% TOPICAL PATCH TP SCH (10:42)
[2018-04-30] MEDS: ERYTHROMYCIN 0.5% OPHTHALMIC OINTMENT 3.5 GM TUBE OU SCH (10:43)
[2018-04-30] MEDS: HYDROCORTISONE 1% TOPICAL OINT 30 GM TUBE TP SCH ×2 (10:43→21:08)
[2018-04-30] MEDS: NICOTINE 14 MG/24 HOURS TOPICAL PATCH TD SCH (10:44)
[2018-04-30] MEDS: METHYL SALICYLATE/MENTHOL OINT 30 GM TUBE TP SCH ×2 (10:44→21:07)
[2018-04-30] MEDS ORDERED: hydrOXYzine PAMOATE 50 MG CAPSULE (FP) PO PRN (10:46)
[2018-04-30] MEDS: SUMAtriptan SUCCINATE 25 MG TABLET PO PRN (12:10)
--- NOTE | 2018-04-30 14:14 | PN ---
[facility] Progress Note Note: PATIENT C/O MIGRAINE HEADACHE WITH ASSOCIATED DIZZINESS. PATIENT REPORTS NO RELIEF FROM TYLENOL. PATIENT ALSO STATES SHE HAS ITCHING OF SKIN RELIEVED MILDLY RELIEVED WITH VISTARIL 50MG BUT USUALLY TAKES BENADRYL 50 MG (2 TABS) WHEN AT HOME. PATIENT DENIES CHEST PAIN, SOB, RASH AND LIGHT SENSITIVITY. PE: ALERT AND ORIENTED X 3, SKIN WARM AND DRY, + RASH TO LEFT BREAST AREA, +PERLLA, PUPILS MILDLY DILATED. NEURO: CN [id number] GROSSLY INTACT. A/P MIGRAINES: WILL ORDER IMITREX 25MG DAILY PRN, CONTINUE VISTARIL FOR PRURITIS AND CONTINUE TO MONITOR CLINICALLY. Vital Signs Temperature 98.1 F 04/30/18 07:16 Pulse Rate 108 H 04/30/18 09:30 Respiratory Rate 18 04/30/18 07:16 Blood Pressure 122/77 04/30/18 09:30 O2 Sat by Pulse Oximetry (%) Laboratory Tests 04/14/18 04/14/18 04/14/18 08:00 08:00 08:00 WBC 8.7 RBC 3.81 Hgb 12.2 Hct 38.1 MCV 99.9 H MCH 32.2 MCHC 32.2 RDW 13.1 Plt Count 134 MPV 10.2 Sodium 135 L Potassium 4.0 Chloride 100 Carbon Dioxide 25 Anion Gap 10 BUN 13 Creatinine 0.7 Creat Clearance w eGFR > 60 Random Glucose 114 H Calcium 8.4 L Total Bilirubin 0.5 AST 20 ALT 27 Alkaline Phosphatase 116 Total Protein 6.7 Albumin 3.3 L Urine Color Urine Appearance Urine pH Ur Specific [place] Urine Protein Urine Glucose (UA) Urine Ketones Urine Blood Urine Nitrite Urine Bilirubin Urine Urobilinogen Ur Leukocyte Esterase Urine WBC (Auto) Urine RBC (Auto) Ur Epithelial Cells Urine Bacteria RPR Titer Nonreactive HIV 1&2 Antibody Screen HIV P24 Antigen 04/14/18 04/15/18 17:30 07:50 WBC RBC Hgb Hct MCV MCH MCHC RDW Plt Count MPV Sodium Potassium Chloride Carbon Dioxide Anion Gap BUN Creatinine Creat Clearance w eGFR Random Glucose Calcium Total Bilirubin AST ALT Alkaline Phosphatase Total Protein Albumin Urine Color Sherri Urine Appearance Cloudy Urine pH 5.0 Ur Specific [place] 1.025 Urine Protein 2+ H Urine Glucose (UA) Negative Urine Ketones Negative Urine Blood 3+ H Urine Nitrite Positive Urine Bilirubin Negative Urine Urobilinogen 4.0 e.u/dl H Ur Leukocyte Esterase 2+ H Urine WBC (Auto) 299 Urine RBC (Auto) 2404 Ur Epithelial Cells Rare Urine Bacteria Moderate RPR Titer HIV 1&2 Antibody Screen Negative HIV P24 Antigen Negative
[2018-04-30] MEDS: traZODone HCL 100 MG TABLET (FP) PO SCH (21:03)
[2018-04-30] MEDS: THIAMINE HCL 100 MG TABLET (FP) PO SCH (21:03)
[2018-04-30] MEDS: QUEtiapine FUMARATE 50 MG TABLET PO SCH (21:03)
[2018-04-30] MEDS: MELATONIN 5 MG TABLETS PO PRN (21:04)
[2018-04-30] MEDS: LIDOCAINE PATCH REMOVAL MC SCH (21:08)
[2018-05-01] MEDS: TOBRAMYCIN 0.3% OPHTH SOLN 5 ML BOTTLE OD SCH ×3 (00:15→12:01)
[2018-05-01] MEDS ORDERED: METHADONE HCL 5 MG TABLET ONE (05:48)
[2018-05-01] MEDS ORDERED: METHADONE HCL 10 MG TABLET ONE (05:48)
[2018-05-01] MEDS ORDERED: PT OWN MED DRAWER 7, Y5N ONE ×4 (05:49→23:23)
[2018-05-01] MEDS ORDERED: METHADONE HCL 40 MG DISPERSABLE TABLET ONE (05:49)
[2018-05-01] MEDS: METHADONE 80 MG, METHADONE 10 MG, METHADONE 5 MG PO SCH (05:50)
[2018-05-01] MEDS: hydrOXYzine PAMOATE 50 MG CAPSULE (FP) PO PRN ×3 (06:43→21:22)
[2018-05-01] MEDS: NICOTINE POLACRILEX 2 MG GUM BC PRN ×4 (06:46→18:37)
[2018-05-01] MEDS: METHYL SALICYLATE/MENTHOL OINT 30 GM TUBE TP SCH ×2 (10:11→21:26)
[2018-05-01] MEDS: HYDROCORTISONE 1% TOPICAL OINT 30 GM TUBE TP SCH ×2 (10:12→21:26)
[2018-05-01] MEDS: LIDOCAINE 5% TOPICAL PATCH TP SCH (10:12)
[2018-05-01] MEDS: PRENATAL VITAMINS W/ FOLIC ACID TABLET (FP) PO SCH (10:13)
[2018-05-01] MEDS: NICOTINE 14 MG/24 HOURS TOPICAL PATCH TD SCH (10:13)
[2018-05-01] MEDS: P-EPHED 60MG/TRIPROLIDI 2.5MG TABLET PO PRN (10:15)
[2018-05-01] MEDS: guaiFENesin/D-METHORPHAN HB 10 ML UNIT-DOSE CUPS PO PRN ×2 (10:16→16:52)
[2018-05-01] MEDS: ACETAMINOPHEN 325 MG TABLET (FP) PO PRN (10:16)
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
--- NOTE | 2018-05-01 14:56 | PN ---
[facility] Progress Note Note: C/O CONSTIPATION. CITROMA NOT EFFECTIVE. Vital Signs 05/01/18 05/01/18 07:05 10:15 Temperature 97.1 F L Pulse Rate 98 H 96 H Respiratory 18 Rate Blood Pressure 116/82 112/73 PLAN:FLEET ENEMA X 1
[2018-05-01] MEDS ORDERED: SODIUM PHOSPHATE/NA BIPHOS 133 ML ENEMA PR ONE (15:00)
[2018-05-01] MEDS: MELATONIN 5 MG TABLETS PO PRN (21:22)
[2018-05-01] MEDS: traZODone HCL 100 MG TABLET (FP) PO SCH (21:22)
[2018-05-01] MEDS: THIAMINE HCL 100 MG TABLET (FP) PO SCH (21:22)
[2018-05-01] MEDS: QUEtiapine FUMARATE 50 MG TABLET PO SCH (21:22)
[2018-05-01] MEDS: LIDOCAINE PATCH REMOVAL MC SCH (21:28)
[2018-05-02] MEDS ORDERED: METHADONE HCL 10 MG TABLET PO SCH (06:00)
[2018-05-02] MEDS ORDERED: METHADONE HCL 10 MG TABLET ONE (06:15)
[2018-05-02] MEDS ORDERED: METHADONE HCL 40 MG DISPERSABLE TABLET ONE (06:15)
[2018-05-02] MEDS: METHADONE 80 MG, METHADONE 10 MG PO SCH (06:16)
[2018-05-02] MEDS: IBUPROFEN 400 MG TABLET (FP) PO PRN ×2 (06:19→14:57)
[2018-05-02] MEDS: hydrOXYzine PAMOATE 50 MG CAPSULE (FP) PO PRN ×4 (06:19→21:32)
[2018-05-02] MEDS: P-EPHED 60MG/TRIPROLIDI 2.5MG TABLET PO PRN ×2 (06:19→19:15)
[2018-05-02] MEDS: guaiFENesin/D-METHORPHAN HB 10 ML UNIT-DOSE CUPS PO PRN ×2 (06:19→21:35)
[2018-05-02] MEDS: NICOTINE POLACRILEX 2 MG GUM BC PRN ×5 (06:19→21:36)
[2018-05-02] MEDS: DOCUSATE SODIUM 100 MG CAPSULE (FP) PO SCH ×2 (10:21→21:32)
[2018-05-02] MEDS ORDERED: PT OWN MED DRAWER 7, Y5N ONE (10:21)
[2018-05-02] MEDS: HYDROCORTISONE 1% TOPICAL OINT 30 GM TUBE TP SCH ×2 (10:21→21:36)
[2018-05-02] MEDS: METHYL SALICYLATE/MENTHOL OINT 30 GM TUBE TP SCH ×2 (10:21→21:36)
[2018-05-02] MEDS: PRENATAL VITAMINS W/ FOLIC ACID TABLET (FP) PO SCH (10:21)
[2018-05-02] MEDS: SUMAtriptan SUCCINATE 25 MG TABLET PO PRN (10:22)
[2018-05-02] MEDS: NICOTINE 14 MG/24 HOURS TOPICAL PATCH TD SCH (10:22)
[2018-05-02] MEDS: LIDOCAINE 5% TOPICAL PATCH TP SCH (10:22)
[2018-05-02] MEDS: traZODone HCL 100 MG TABLET (FP) PO SCH (21:32)
[2018-05-02] MEDS: QUEtiapine FUMARATE 50 MG TABLET PO SCH (21:32)
[2018-05-02] MEDS: THIAMINE HCL 100 MG TABLET (FP) PO SCH (21:33)
[2018-05-02] MEDS: MELATONIN 5 MG TABLETS PO PRN (21:33)
[2018-05-02] MEDS: LIDOCAINE PATCH REMOVAL MC SCH (21:37)
[2018-05-03] MEDS ORDERED: METHADONE HCL 40 MG DISPERSABLE TABLET ONE (03:24)
[2018-05-03] MEDS ORDERED: METHADONE HCL 10 MG TABLET ONE (03:24)
[2018-05-03] MEDS: METHADONE 80 MG, METHADONE 10 MG PO SCH (06:17)
[2018-05-03] MEDS: IBUPROFEN 400 MG TABLET (FP) PO PRN ×2 (06:20→15:27)
[2018-05-03] MEDS: NICOTINE POLACRILEX 2 MG GUM BC PRN ×3 (06:20→23:18)
[2018-05-03] MEDS: hydrOXYzine PAMOATE 50 MG CAPSULE (FP) PO PRN ×4 (06:20→21:12)
[2018-05-03] MEDS: P-EPHED 60MG/TRIPROLIDI 2.5MG TABLET PO PRN ×2 (06:20→21:14)
[2018-05-03] MEDS ORDERED: PT OWN MED DRAWER 7, Y5N ONE (08:27)
[2018-05-03] MEDS: PRENATAL VITAMINS W/ FOLIC ACID TABLET (FP) PO SCH (10:11)
[2018-05-03] MEDS: NICOTINE 14 MG/24 HOURS TOPICAL PATCH TD SCH (10:11)
[2018-05-03] MEDS: DOCUSATE SODIUM 100 MG CAPSULE (FP) PO SCH ×2 (10:11→21:13)
[2018-05-03] MEDS: guaiFENesin/D-METHORPHAN HB 10 ML UNIT-DOSE CUPS PO PRN ×2 (10:15→19:40)
[2018-05-03] MEDS: MAGNESIUM HYDROX 2400MG/30ML ORAL SUSPENSION 30 ML CUP PO PRN (10:15)
[2018-05-03] MEDS: LIDOCAINE 5% TOPICAL PATCH TP SCH (10:17)
[2018-05-03] MEDS: METHYL SALICYLATE/MENTHOL OINT 30 GM TUBE TP SCH ×2 (10:17→22:42)
[2018-05-03] MEDS: HYDROCORTISONE 1% TOPICAL OINT 30 GM TUBE TP SCH ×2 (10:17→21:16)
--- NOTE | 2018-05-03 10:41 | PN ---
[facility] Progress Note Note: PATIENT SEEN FOR C/O MIGRAINES AND THINNING HAIR. IMITREX HELPFUL FOR MIGRAINE RELIEF HOWEVER, IT MAKES PATIENT SLEEPY. PATIENT REQUESTED TO REST THIS MORNING AND ATTEND GROUP IN THE AFTERNOON. PATIENT REQUEST GRANTED FOR TODAY. PATIENT ALSO STATED SHE HAS "SPECIAL" CREAM FOR THINNING HAIR IN HER BELONGINGS BUT IS AWARE THAT SHE CANNOT BRING MEDICATION TO UNIT THAT CANNOT BE VERIFIED BY PHARMACY. PATIENT ALERT AND ORIENTED X 3. DENIES DIZZINESS, NAUSEA/VOMITING, VISION CHANGES. + LIGHT SENSITIVITY. PE: A AND O X 3 SKIN WARM AND DRY HEAD NORMOCEPHALIC, +THINNING HAIR LINE NEURO: +MODERATELY DILATED PUPILS, EOMS INTACT BL, CN X1-X11 GROSSLY INTACT A/P: MIGRAINES: WILL CONTINUE IMITREX, REST THIS AM HAIR LOSS: KETOCONAZOLE SHAMPOO ORDERED. CONTINUE TO MONITOR CLINICALLY
[2018-05-03] MEDS: SUMAtriptan SUCCINATE 25 MG TABLET PO PRN (11:04)
[2018-05-03] MEDS: KETOCONAZOLE 2 % SHAMPOO 120 ML BOTTLE TP SCH (11:05)
[2018-05-03] MEDS: ACETAMINOPHEN 325 MG TABLET (FP) PO PRN (18:41)
[2018-05-03] MEDS: QUEtiapine FUMARATE 50 MG TABLET PO SCH (21:12)
[2018-05-03] MEDS: THIAMINE HCL 100 MG TABLET (FP) PO SCH (21:12)
[2018-05-03] MEDS: traZODone HCL 100 MG TABLET (FP) PO SCH (21:13)
[2018-05-03] MEDS: LIDOCAINE PATCH REMOVAL MC SCH (21:14)
[2018-05-03] MEDS: MELATONIN 5 MG TABLETS PO PRN (21:15)
[2018-05-04] MEDS ORDERED: METHADONE HCL 40 MG DISPERSABLE TABLET ONE (02:52)
[2018-05-04] MEDS ORDERED: METHADONE HCL 10 MG TABLET ONE (02:52)
[2018-05-04] MEDS: METHADONE 80 MG, METHADONE 10 MG PO SCH (06:17)
[2018-05-04] MEDS: NICOTINE POLACRILEX 2 MG GUM BC PRN ×3 (06:18→21:26)
[2018-05-04] MEDS: hydrOXYzine PAMOATE 50 MG CAPSULE (FP) PO PRN ×4 (06:18→21:23)
[2018-05-04] MEDS ORDERED: PT OWN MED DRAWER 7, Y5N ONE ×2 (09:28→09:40)
--- NOTE | 2018-05-04 09:31 | PN ---
[facility] Progress Note Note: Pt states she has a headache and has leg cramps- pt is tapering down on the methadone to get [facility]- should be down to 80mg/day. O: Laboratory Tests 04/14/18 04/14/18 04/14/18 08:00 08:00 08:00 WBC 8.7 RBC 3.81 Hgb 12.2 Hct 38.1 MCV 99.9 H MCH 32.2 MCHC 32.2 RDW 13.1 Plt Count 134 MPV 10.2 Sodium 135 L Potassium 4.0 Chloride 100 Carbon Dioxide 25 Anion Gap 10 BUN 13 Creatinine 0.7 Creat Clearance w eGFR > 60 Random Glucose 114 H Calcium 8.4 L Total Bilirubin 0.5 AST 20 ALT 27 Alkaline Phosphatase 116 Total Protein 6.7 Albumin 3.3 L Urine Color Urine Appearance Urine pH Ur Specific [place] Urine Protein Urine Glucose (UA) Urine Ketones Urine Blood Urine Nitrite Urine Bilirubin Urine Urobilinogen Ur Leukocyte Esterase Urine WBC (Auto) Urine RBC (Auto) Ur Epithelial Cells Urine Bacteria RPR Titer Nonreactive HIV 1&2 Antibody Screen HIV P24 Antigen 04/14/18 04/15/18 17:30 07:50 WBC RBC Hgb Hct MCV MCH MCHC RDW Plt Count MPV Sodium Potassium Chloride Carbon Dioxide Anion Gap BUN Creatinine Creat Clearance w eGFR Random Glucose Calcium Total Bilirubin AST ALT Alkaline Phosphatase Total Protein Albumin Urine Color [place]ri Urine Appearance Cloudy Urine pH 5.0 Ur Specific [place] 1.025 Urine Protein 2+ H Urine Glucose (UA) Negative Urine Ketones Negative Urine Blood 3+ H Urine Nitrite Positive Urine Bilirubin Negative Urine Urobilinogen 4.0 e.u/dl H Ur Leukocyte Esterase 2+ H Urine WBC (Auto) 299 Urine RBC (Auto) 2404 Ur Epithelial Cells Rare Urine Bacteria Moderate RPR Titer HIV 1&2 Antibody Screen Negative HIV P24 Antigen Negative Vital Signs - 24 hr 05/04/18 05/04/18 05/04/18 00:30 03:30 07:20 Temperature 98.1 F Pulse Rate 97 H Respiratory 18 18 16 Rate Blood Pressure 95/69 VS good. Ass/plan: Tapering dose of methadone- probable cause of pain all over, headache and feeling uncomfortable: clonidine, flexeril ordered headache: pt states not helped with motrin/tylenol, will give magnesium and continue current meds Myoclonus at night- consider magnesium deficiency: slow mag order pt can rest in room until after lunch.
[2018-05-04] MEDS: PRENATAL VITAMINS W/ FOLIC ACID TABLET (FP) PO SCH (09:36)
[2018-05-04] MEDS: DOCUSATE SODIUM 100 MG CAPSULE (FP) PO SCH ×2 (09:36→21:22)
[2018-05-04] MEDS: METHYL SALICYLATE/MENTHOL OINT 30 GM TUBE TP SCH ×2 (09:37→21:37)
[2018-05-04] MEDS: LIDOCAINE 5% TOPICAL PATCH TP SCH (09:37)
[2018-05-04] MEDS: NICOTINE 14 MG/24 HOURS TOPICAL PATCH TD SCH (09:37)
[2018-05-04] MEDS: HYDROCORTISONE 1% TOPICAL OINT 30 GM TUBE TP SCH ×2 (09:37→21:37)
[2018-05-04] MEDS: guaiFENesin/D-METHORPHAN HB 10 ML UNIT-DOSE CUPS PO PRN ×2 (09:39→21:26)
[2018-05-04] MEDS: SUMAtriptan SUCCINATE 25 MG TABLET PO PRN (09:40)
[2018-05-04] MEDS: cloNIDine HCL 0.1 MG TABLET PO SCH ×2 (10:35→21:23)
[2018-05-04] MEDS: MAGNESIUM CL 64 MG TABLET.SA PO SCH (10:36)
[2018-05-04] MEDS: CYCLOBENZAPRINE HCL 5 MG TABLET PO SCH ×2 (14:28→21:23)
[2018-05-04] MEDS: P-EPHED 60MG/TRIPROLIDI 2.5MG TABLET PO PRN (17:44)
[2018-05-04] MEDS: QUEtiapine FUMARATE 50 MG TABLET PO SCH (21:22)
[2018-05-04] MEDS: MELATONIN 5 MG TABLETS PO PRN (21:23)
[2018-05-04] MEDS: THIAMINE HCL 100 MG TABLET (FP) PO SCH (21:23)
[2018-05-04] MEDS: traZODone HCL 100 MG TABLET (FP) PO SCH (21:23)
[2018-05-04] MEDS: LIDOCAINE PATCH REMOVAL MC SCH (21:37)
[2018-05-05] MEDS ORDERED: METHADONE HCL 10 MG TABLET PO SCH (06:00)
[2018-05-05] MEDS ORDERED: METHADONE HCL 40 MG DISPERSABLE TABLET ONE (06:01)
[2018-05-05] MEDS ORDERED: METHADONE HCL 5 MG TABLET ONE (06:01)
[2018-05-05] MEDS: guaiFENesin/D-METHORPHAN HB 10 ML UNIT-DOSE CUPS PO PRN (06:25)
[2018-05-05] MEDS: METHADONE 80 MG, METHADONE 5 MG PO SCH (06:26)
[2018-05-05] MEDS: hydrOXYzine PAMOATE 50 MG CAPSULE (FP) PO PRN ×4 (06:26→21:21)
[2018-05-05] MEDS: CYCLOBENZAPRINE HCL 5 MG TABLET PO SCH ×3 (06:26→21:21)
[2018-05-05] MEDS: NICOTINE POLACRILEX 2 MG GUM BC PRN ×5 (06:34→21:21)
[2018-05-05] MEDS ORDERED: PT OWN MED DRAWER 7, Y5N ONE (08:42)
[2018-05-05] MEDS: LIDOCAINE 5% TOPICAL PATCH TP SCH (10:15)
[2018-05-05] MEDS: DOCUSATE SODIUM 100 MG CAPSULE (FP) PO SCH ×2 (10:17→21:21)
[2018-05-05] MEDS: SUMAtriptan SUCCINATE 25 MG TABLET PO PRN (10:17)
[2018-05-05] MEDS: PRENATAL VITAMINS W/ FOLIC ACID TABLET (FP) PO SCH (10:17)
[2018-05-05] MEDS: cloNIDine HCL 0.1 MG TABLET PO SCH ×2 (10:17→21:20)
[2018-05-05] MEDS: P-EPHED 60MG/TRIPROLIDI 2.5MG TABLET PO PRN ×2 (10:18→21:21)
[2018-05-05] MEDS: HYDROCORTISONE 1% TOPICAL OINT 30 GM TUBE TP SCH ×2 (10:18→21:21)
[2018-05-05] MEDS: MAGNESIUM CL 64 MG TABLET.SA PO SCH (10:18)
[2018-05-05] MEDS: METHYL SALICYLATE/MENTHOL OINT 30 GM TUBE TP SCH ×2 (10:18→21:20)
[2018-05-05] MEDS: NICOTINE 14 MG/24 HOURS TOPICAL PATCH TD SCH (10:19)
[2018-05-05] MEDS: QUEtiapine FUMARATE 50 MG TABLET PO SCH (21:19)
[2018-05-05] MEDS: MELATONIN 5 MG TABLETS PO PRN (21:20)
[2018-05-05] MEDS: THIAMINE HCL 100 MG TABLET (FP) PO SCH (21:21)
[2018-05-05] MEDS: LIDOCAINE PATCH REMOVAL MC SCH (21:21)
[2018-05-05] MEDS: traZODone HCL 100 MG TABLET (FP) PO SCH (21:21)
[2018-05-06] MEDS: IBUPROFEN 400 MG TABLET (FP) PO PRN ×2 (02:28→10:29)
[2018-05-06] MEDS: hydrOXYzine PAMOATE 50 MG CAPSULE (FP) PO PRN ×5 (02:28→23:30)
[2018-05-06] MEDS: NICOTINE POLACRILEX 2 MG GUM BC PRN ×5 (02:29→21:33)
[2018-05-06] MEDS ORDERED: METHADONE HCL 40 MG DISPERSABLE TABLET ONE (05:53)
[2018-05-06] MEDS ORDERED: METHADONE HCL 5 MG TABLET ONE (05:53)
[2018-05-06] MEDS: CYCLOBENZAPRINE HCL 5 MG TABLET PO SCH ×3 (06:51→21:28)
[2018-05-06] MEDS: METHADONE 80 MG, METHADONE 5 MG PO SCH (06:52)
[2018-05-06] MEDS: LIDOCAINE 5% TOPICAL PATCH TP SCH (10:22)
[2018-05-06] MEDS: PRENATAL VITAMINS W/ FOLIC ACID TABLET (FP) PO SCH (10:22)
[2018-05-06] MEDS: DOCUSATE SODIUM 100 MG CAPSULE (FP) PO SCH ×2 (10:22→21:29)
[2018-05-06] MEDS: cloNIDine HCL 0.1 MG TABLET PO SCH ×2 (10:24→21:30)
[2018-05-06] MEDS: METHYL SALICYLATE/MENTHOL OINT 30 GM TUBE TP SCH ×2 (10:24→21:32)
[2018-05-06] MEDS: guaiFENesin/D-METHORPHAN HB 10 ML UNIT-DOSE CUPS PO PRN ×2 (10:31→23:30)
[2018-05-06] MEDS: HYDROCORTISONE 1% TOPICAL OINT 30 GM TUBE TP SCH ×2 (10:34→21:30)
[2018-05-06] MEDS ORDERED: PT OWN MED DRAWER 7, Y5N ONE (10:38)
[2018-05-06] MEDS: SUMAtriptan SUCCINATE 25 MG TABLET PO PRN (10:39)
[2018-05-06] MEDS: P-EPHED 60MG/TRIPROLIDI 2.5MG TABLET PO PRN ×2 (10:39→21:32)
[2018-05-06] MEDS: MAGNESIUM CL 64 MG TABLET.SA PO SCH (10:39)
[2018-05-06] MEDS: KETOCONAZOLE 2 % SHAMPOO 120 ML BOTTLE TP SCH (11:02)
[2018-05-06] MEDS: NICOTINE 14 MG/24 HOURS TOPICAL PATCH TD SCH (11:02)
[2018-05-06] MEDS: MAGNESIUM HYDROX 2400MG/30ML ORAL SUSPENSION 30 ML CUP PO PRN (13:06)
[2018-05-06] MEDS: MELATONIN 5 MG TABLETS PO PRN (21:28)
[2018-05-06] MEDS: QUEtiapine FUMARATE 50 MG TABLET PO SCH (21:28)
[2018-05-06] MEDS: THIAMINE HCL 100 MG TABLET (FP) PO SCH (21:29)
[2018-05-06] MEDS: traZODone HCL 100 MG TABLET (FP) PO SCH (21:29)
[2018-05-06] MEDS: LIDOCAINE PATCH REMOVAL MC SCH (21:33)
[2018-05-07] MEDS ORDERED: METHADONE HCL 5 MG TABLET ONE (05:40)
[2018-05-07] MEDS ORDERED: METHADONE HCL 40 MG DISPERSABLE TABLET ONE (05:41)
[2018-05-07] MEDS: METHADONE 80 MG, METHADONE 5 MG PO SCH (05:42)
[2018-05-07] MEDS: hydrOXYzine PAMOATE 50 MG CAPSULE (FP) PO PRN ×4 (06:38→21:04)
[2018-05-07] MEDS: CYCLOBENZAPRINE HCL 5 MG TABLET PO SCH ×3 (06:38→21:05)
[2018-05-07] MEDS: NICOTINE POLACRILEX 2 MG GUM BC PRN ×6 (06:38→21:09)
[2018-05-07] MEDS: IBUPROFEN 400 MG TABLET (FP) PO PRN (06:38)
[2018-05-07] MEDS ORDERED: PT OWN MED DRAWER 7, Y5N ONE (08:52)
[2018-05-07] MEDS: P-EPHED 60MG/TRIPROLIDI 2.5MG TABLET PO PRN (09:05)
[2018-05-07] MEDS: MAGNESIUM CL 64 MG TABLET.SA PO SCH (09:59)
[2018-05-07] MEDS: DOCUSATE SODIUM 100 MG CAPSULE (FP) PO SCH ×2 (10:00→21:04)
[2018-05-07] MEDS: PRENATAL VITAMINS W/ FOLIC ACID TABLET (FP) PO SCH (10:02)
[2018-05-07] MEDS: METHYL SALICYLATE/MENTHOL OINT 30 GM TUBE TP SCH ×2 (10:03→21:05)
[2018-05-07] MEDS: LIDOCAINE 5% TOPICAL PATCH TP SCH (10:03)
[2018-05-07] MEDS: NICOTINE 14 MG/24 HOURS TOPICAL PATCH TD SCH (10:03)
[2018-05-07] MEDS: HYDROCORTISONE 1% TOPICAL OINT 30 GM TUBE TP SCH ×2 (10:03→21:05)
[2018-05-07] MEDS: guaiFENesin/D-METHORPHAN HB 10 ML UNIT-DOSE CUPS PO PRN ×2 (10:04→21:08)
[2018-05-07] MEDS: cloNIDine HCL 0.1 MG TABLET PO SCH ×2 (10:06→21:06)
[2018-05-07] MEDS: MELATONIN 5 MG TABLETS PO PRN (21:04)
[2018-05-07] MEDS: THIAMINE HCL 100 MG TABLET (FP) PO SCH (21:05)
[2018-05-07] MEDS: LIDOCAINE PATCH REMOVAL MC SCH (21:05)
[2018-05-07] MEDS: traZODone HCL 100 MG TABLET (FP) PO SCH (21:05)
[2018-05-07] MEDS: QUEtiapine FUMARATE 50 MG TABLET PO SCH (21:05)
[2018-05-08] MEDS: METHADONE HCL 40 MG DISPERSABLE TABLET PO SCH (06:38)
[2018-05-08] MEDS: IBUPROFEN 400 MG TABLET (FP) PO PRN (06:39)
[2018-05-08] MEDS: CYCLOBENZAPRINE HCL 5 MG TABLET PO SCH ×3 (06:39→21:19)
[2018-05-08] MEDS: hydrOXYzine PAMOATE 50 MG CAPSULE (FP) PO PRN ×4 (06:40→21:23)
[2018-05-08] MEDS: NICOTINE POLACRILEX 2 MG GUM BC PRN ×5 (06:40→19:37)
[2018-05-08] MEDS: guaiFENesin/D-METHORPHAN HB 10 ML UNIT-DOSE CUPS PO PRN ×2 (08:49→21:25)
[2018-05-08] MEDS: P-EPHED 60MG/TRIPROLIDI 2.5MG TABLET PO PRN (08:49)
[2018-05-08] MEDS: PRENATAL VITAMINS W/ FOLIC ACID TABLET (FP) PO SCH (10:36)
[2018-05-08] MEDS: MAGNESIUM CL 64 MG TABLET.SA PO SCH (10:36)
[2018-05-08] MEDS: NICOTINE 14 MG/24 HOURS TOPICAL PATCH TD SCH (10:36)
[2018-05-08] MEDS: DOCUSATE SODIUM 100 MG CAPSULE (FP) PO SCH ×2 (10:38→21:26)
[2018-05-08] MEDS: METHYL SALICYLATE/MENTHOL OINT 30 GM TUBE TP SCH ×2 (10:38→21:23)
[2018-05-08] MEDS: LIDOCAINE 5% TOPICAL PATCH TP SCH (10:38)
[2018-05-08] MEDS: cloNIDine HCL 0.1 MG TABLET PO SCH ×2 (10:38→21:22)
[2018-05-08] MEDS: HYDROCORTISONE 1% TOPICAL OINT 30 GM TUBE TP SCH ×2 (10:38→21:23)
[2018-05-08] MEDS ORDERED: TRIMETHOBENZAMIDE HCL 200MG/2ML INJ IM ONE ×2 (10:40→18:56)
--- NOTE | 2018-05-08 10:44 | PN ---
[facility] Progress Note Note: NOTIFIED BY RN PATIENT VOMITED X 1. RN SAW UNDIGESTED FOOD PARTICLES SPLATTERED IN SINK AND WALL. PATIENT OFFERED ORAL DOSE OF ANTIEMETIC BUT PATIENT STATES SHE CANNOT TOLERATE ORAL MEDICATION. PATIENT ORDER TIGAN 200MG IM X ONE DOSE AND WILL CONTINUE TO MONITOR CLINICALLY. Vital Signs Temperature 98.1 F 05/08/18 07:23 Pulse Rate 96 H 05/08/18 07:23 Respiratory Rate 16 05/08/18 07:23 Blood Pressure 103/68 05/08/18 07:23 O2 Sat by Pulse Oximetry (%)
[2018-05-08] MEDS ORDERED: PT OWN MED DRAWER 7, Y5N ONE (12:28)
[2018-05-08 18:54] VITALS: TEMP 97.9
--- NOTE | 2018-05-08 18:59 | PN ---
S Progress Note Note: Patient vomited after eating and c/o nausea. Denies abd pain. B/P 111/74; HR: 96 ; T: 97.9 Plan: Tigan IM. F/u as needed.
[2018-05-08] MEDS: MELATONIN 5 MG TABLETS PO PRN (21:18)
[2018-05-08] MEDS: traZODone HCL 100 MG TABLET (FP) PO SCH (21:19)
[2018-05-08] MEDS: QUEtiapine FUMARATE 50 MG TABLET PO SCH (21:19)
[2018-05-08] MEDS: THIAMINE HCL 100 MG TABLET (FP) PO SCH (21:19)
[2018-05-08] MEDS: LIDOCAINE PATCH REMOVAL MC SCH (21:23)
[2018-05-09] MEDS ORDERED: PT OWN MED DRAWER 7, Y5N ONE (01:25)
[2018-05-09] MEDS: METHADONE HCL 40 MG DISPERSABLE TABLET PO SCH (06:08)
[2018-05-09] MEDS: hydrOXYzine PAMOATE 50 MG CAPSULE (FP) PO PRN (06:08)
[2018-05-09] MEDS: CYCLOBENZAPRINE HCL 5 MG TABLET PO SCH (06:08)
[2018-05-09] MEDS: NICOTINE POLACRILEX 2 MG GUM BC PRN (06:09)
[2018-05-09 07:15] VITALS: BP 106/70; PULSE 84
--- NOTE | 2018-05-09 09:43 | PN ---
[facility] Progress Note Note: Patient completed this program today.she has met her treatment goals and will continue to address her issues on outpatient basis.Patient will continue current medications.Patient is stable for discharge today.
== END 2018-05-09 07:25 | disposition home or self-care (01) | DRG 772 ==
LOC: YASAS 16:28 → Y3E 21:27
PROVIDERS: ADMIT Psychiatry & Neurology Psychiatry; ATTEND Psychiatry & Neurology Psychiatry
PROC: HZ42ZZZ Group Counseling for Substance Abuse Treatment, Cognitive-Behavioral (ICD-10-PCS; principal; 2018-04-13)
DX: F12.20 Cannabis dependence, uncomplicated (principal); F11.20 Opioid dependence, uncomplicated; F17.213 Nicotine dependence, cigarettes, with withdrawal; F19.280 Other psychoactive substance dependence with psychoactive substance-induced anxiety disorder; F19.282 Other psychoactive substance dependence with psychoactive substance-induced sleep disorder; F31.9 Bipolar disorder, unspecified; F41.9 Anxiety disorder, unspecified; G43.909 Migraine, unspecified, not intractable, without status migrainosus; J45.20 Mild intermittent asthma, uncomplicated; K59.00 Constipation, unspecified; H00.011 Hordeolum externum right upper eyelid
CPT/HCPCS: 36415; 80053; 81003; 81015; 85027; 86593; 87389; 93005; 93010; J0735

== ENCOUNTER 2018-08-05 08:52 | Inpatient (IN) | payer OTHER ==
[2018-08-05 09:58] VITALS: BMI 44.6
--- NOTE | 2018-08-05 11:23 | HP ---
CIWA Score Nausea/Vomitin-No Nausea/No Vomiting Muscle Tremors: 4-Moderate,w/Arms Extend Anxiety: 3 Agitation: 3 Paroxysmal Sweats: 2 Orientation: 2-Disoriented Date<2 days Tacttile Disturbances: 0-None Auditory Disturbances: 0-None Visual Disturbances: 0-None Headache: 2-Mild CIWA-Ar Total Score: 16 - Admission Criteria [facility]ASAS Guidelines: Admission for Medically Managed Detox: Requires at least one of the followin. CIWA greater than 12 2. Seizures within the past 24 hours 3. Delirium tremens within the past 24 hours 4. Hallucinations within the past 24 hours 5. Acute intervention needed for co occurring medical disorder 6. Acute intervention needed for co occurring psychiatric disorder 7. Severe withdrawal that cannot be handled at a lower level of care (continued vomiting, continued diarrhea, abnormal vital signs) requiring intravenous medication and/or fluids 8. Patient presents the following: CIWA greater than 12 Admission Criteria Met: Admission criteria met Admission ROS S - HPI Chief Complaint: "I relapse, I need to get clean and prove to the court to get my children back" Allergies/Adverse Reactions: Allergies Allergy/AdvReac Type Severity Reaction Status Date / Time raspberry AdvReac Verified 08/05/18 10:58 peaches AdvReac Uncoded 08/05/18 10:57 History of Present Illness: 37 yo female with hx of alcohol, marijuana, heroin (nasal) dependence is here seeking alcohol detox. Last treatment rehab at detox [facility] 04/13/18 - 05/09/18 and relapse soon after. Patient is self referred, reports currently has an ACS case and is at risk of loosing her children. Patient linked to [facility] on methadone 110 mg qd, dose pending verification last mediated today with take home bottles . PMHX: asthma, depression and anxiety. Denies suicidal / homicidal ideation, reports hx of suicide attempt attempted suicide eight months ago. Reports hx of ETOH blackouts with last episode in Jun 2018. Longest period of sobriety five years. Exam Limitations: No Limitations - Ebola screening Have you traveled outside of the country in the last 21 days: No (N) Have you had contact with anyone from an Ebola affected area: No Have you been sick,other than usual withdrawal symptoms: No Do you have a fever: No - Review of Systems Constitutional: Chills, Changes in sleep, Other ("shakes", weight gain) EENT: reports: Nose Congestion Respiratory: reports: Cough (x2 days) Cardiac: reports: No Symptoms Reported GI: reports: Constipated (last BM one week ago, denies abdominal pain), Poor Fluid Intake : reports: Other (hesitancy) Musculoskeletal: reports: Back Pain Integumentary: reports: Other (alopecia) Neuro: reports: Headache Endocrine: reports: No Symptoms Reported Hematology: reports: Anemia Psychiatric: reports: Orientated x3, Anxious, Depressed Other Systems: Reviewed and Negative Patient History - Patient Medical History Hx Anemia: Yes Hx Asthma: Yes Hx Chronic Obstructive Pulmonary Disease (COPD): No Hx Cancer: No Hx Cardiac Disorders: No Hx Congestive Heart Failure: No Hx Hypertension: No Hx Hypercholesterolemia: No Hx Pacemaker: No HX Cerebrovascular Accident: No Hx Seizures: Yes (Jun 2018 ETOH related) Hx Dementia: No Hx Diabetes: No Hx Gastrointestinal Disorders: No Hx Liver Disease: No Hx Genitourinary Disorders: No Hx Sexually Transmitted Disorders: No Hx Renal Disease (ESRD): No Hx Thyroid Disease: No Hx Human Immunodeficiency Virus (HIV): No Hx Hepatitis C: No Hx Depression: Yes Hx Suicide Attempt: Yes (8 months ago ) Hx Bipolar Disorder: Yes Hx Schizophrenia: No - Patient Surgical History Past Surgical History: Yes Hx Section: Yes (X3) Anesthesia Reaction: No - PPD History Documented Results: Negative w/proof Date: 04/15/18 PPD to be Administered?: No - Reproductive History Last Menstrual Period: 04/13/18 Patient : No - Smoking Cessation Smoking history: Current every day smoker Have you smoked in the past 12 months: Yes Aproximately how many cigarettes per day: 8 Cigars Per Day: 0 Hx Chewing Tobacco Use: No Initiated information on smoking cessation: Yes 'Breaking Loose' booklet given: 08/05/18 - Substance & Tx. History Hx Alcohol Use: Yes Hx Substance Use: Yes Substance Use Type: Alcohol, Heroin, Marijuana Hx Substance Use Treatment: Yes (Rehab [facility] 04/13/18 - 05/09/18) - Substances Abused Heroin Route: Inhalation Frequency: Daily Amount used: 8 bags Age of first use: 27 Date of Last Use: 08/05/18 Alcohol Route: Oral Frequency: Daily Amount used: 1 1/2 pt. vodka Age of first use: 23 Date of Last Use: 07/29/18 angela Route: Smoking Frequency: Daily Amount used: 1 bag Age of first use: 19 Date of Last Use: 08/04/18 Family Disease History - Family Disease History Family Disease History: Other: Father (HEROIN ADDICITION), Mother (COPD, RA, CIRROHSIS) Admission Physical Exam [facility] - Vital Signs Vital Signs: Vital Signs - 24 hr 08/05/18 09:55 Temperature 98.6 F Pulse Rate 99 H Respiratory 20 Rate Blood Pressure 111/76 - Physical General Appearance: Yes: Appropriately Dressed, Obese, Anxious HEENTM: Yes: EOMI, Hearing grossly Normal, Normal ENT Inspection, [place], Pharynx Normal, Tm's normal, Other (dry mucous membranes) Respiratory: Yes: Chest Non-Tender, Lungs Clear, Normal Breath Sounds, No Respiratory Distress, No Accessory Muscle Use Neck: Yes: Within Normal Limits Breast: Yes: Breast Exam Deferred Cardiology: Yes: Regular Rhythm, Regular Rate, Murmur Abdominal: Yes: Normal Bowel Sounds, Non Tender, Soft, Protuberent Genitourinary: Yes: Within Normal Limits Back: Yes: Normal Inspection Musculoskeletal: Yes: full range of Motion, Gait Steady, Pelvis Stable, Back pain Extremities: Yes: Normal Capillary Refill, Normal Inspection, Normal Range of Motion, Non-Tender Neurological: Yes: engagement liaison II-XII NML intact, Fully Oriented, Alert, Motor Strength 5/5, Depressed Affect Integumentary: Yes: Normal Color, Warm, Diaphoresis Lymphatic: Yes: Within Normal Limits - Diagnostic (1) Alcohol dependence with withdrawal Current Visit: Yes Status: Acute Qualifiers: Complication of substance-induced condition: uncomplicated Qualified Code(s ): F10.230 - Alcohol dependence with withdrawal, uncomplicated (2) Cannabis dependence Current Visit: Yes Status: Acute (3) Asthma Current Visit: Yes Status: Chronic Qualifiers: Asthma severity: mild Asthma persistence: intermittent Asthma complication type: uncomplicated Qualified Code(s): J45.20 - Mild intermittent asthma, uncomplicated (4) Opioid dependence on agonist therapy Current Visit: Yes Status: Chronic Cleared for Admission [facility] - Detox or Rehab [facility] Level of Care: Medically Managed Detox Regimen/Protocol: Librium [facility] Breath Alcohol Content Breath Alcohol Content: 0.009 Urine Pregancy Test - Result Urine Test Results: Negative - NO Line Present Urine Drug Screen - Results Drug Screen Negative: No Urine Drug Screen Results: THC-Marijuana, OPI-Opiates, BZO-Benzodiazepines, MTD- Methadone, FEN-Fentanyl Inpatient Rehab Admission - Rehab Decision to Admit Inpatient rehab admission?: No
[2018-08-05] MEDS ORDERED: LACTULOSE 20 GM/30 ML UDC (FOR ORAL USE ONLY) PO PRN (11:41)
[2018-08-05] MEDS ORDERED: ALBUTEROL SO4 8 GM HFA INHALER IH SCH (11:45)
[2018-08-05] MEDS ORDERED: PSEUDOEPHEDRINE HCL 30 MG TABLET PO SCH (11:45)
[2018-08-05] MEDS ORDERED: MAG HYDROX/AL HYDROX/SIMETH 30 ML UNIT-DOSE CUP PO PRN (11:52)
[2018-08-05] MEDS ORDERED: chlordiazePOXIDE HCL 25 MG CAPSULE PO PRN (11:52)
[2018-08-05] MEDS ORDERED: IBUPROFEN 400 MG TABLET (FP) PO PRN (11:52)
[2018-08-05] MEDS ORDERED: MAGNESIUM CITRATE 300 ML BOTTLE PO PRN (11:52)
[2018-08-05] MEDS ORDERED: MELATONIN 5 MG TABLETS PO PRN (11:52)
[2018-08-05] MEDS ORDERED: BISMUTH SUBSALICYLATE 524 MG/30 ML UD PO PRN (11:52)
[2018-08-05] MEDS ORDERED: hydrOXYzine PAMOATE 25 MG CAPSULE (FP) PO PRN (11:52)
[2018-08-05] MEDS ORDERED: MENTHOL/PHENOL 1 EACH UD MM PRN (11:52)
[2018-08-05] MEDS ORDERED: ALBUTEROL SO4 8 GM HFA INHALER IH PRN (14:56)
[2018-08-05] MEDS: MAGNESIUM HYDROX 2400MG/30ML ORAL SUSPENSION 30 ML CUP PO PRN (17:01)
[2018-08-05] MEDS: NICOTINE POLACRILEX 2 MG GUM BUC PRN ×2 (17:02→22:08)
[2018-08-05] MEDS: chlordiazePOXIDE HCL 25 MG CAPSULE PO SCH ×2 (17:45→22:04)
[2018-08-05] MEDS: IBUPROFEN 400 MG TABLET (FP) PO PRN (17:45)
[2018-08-05] MEDS: BENZOCAINE 20 % GEL TUBE MM PRN (20:58)
[2018-08-05] MEDS ORDERED: TRIMETHOBENZAMIDE HCL 200MG/2ML INJ IM ONE (21:52)
--- NOTE | 2018-08-05 21:56 | PN ---
S Progress Note Note: Patient vomited x 2 Vital Signs Temperature 98 F 08/05/18 17:30 Pulse Rate 81 08/05/18 17:30 Respiratory Rate 16 08/05/18 17:30 Blood Pressure 136/94 08/05/18 17:30 O2 Sat by Pulse Oximetry (%) Action:Tigan 200mg IM ordered
[2018-08-05] MEDS ORDERED: QUEtiapine FUMARATE 50 MG TABLET PO ONE (22:00)
[2018-08-05] MEDS ORDERED: traZODone HCL 50 MG TABLET (FP) PO SCH (22:00)
[2018-08-05] MEDS: THIAMINE HCL 100 MG TABLET (FP) PO SCH (22:04)
[2018-08-05] MEDS: PSEUDOEPHEDRINE HCL 30 MG TABLET PO PRN (22:05)
[2018-08-05] MEDS: ACETAMINOPHEN 325 MG TABLET (FP) PO PRN (22:07)
[2018-08-05 22:48] LABS: URINE APPEARANCE CLEAR; URINE BILIRUBIN NEGATIVE (<2.0 mg/dL); URINE COLOR YELLOW; URINE GLUCOSE (UA) NEGATIVE (NEGATIVE); URINE KETONE NEGATIVE (NEGATIVE); URINE LEUK ESTERASE NEGATIVE (NEGATIVE); URINE NITRITE NEGATIVE (NEGATIVE); URINE PROTEIN NEGATIVE (NEGATIVE); URINE UROBILINOGEN NEGATIVE mg/dL (0.2-1.0)
[2018-08-06] MEDS: NICOTINE POLACRILEX 2 MG GUM BUC PRN ×5 (00:46→20:42)
[2018-08-06] MEDS: chlordiazePOXIDE HCL 25 MG CAPSULE PO SCH ×4 (06:16→22:03)
[2018-08-06] MEDS ORDERED: PNEUMOC 13-VAL CONJ-DIP CRM/PF 0.5 ML DISP.SYRIN IM ONE (09:00)
[2018-08-06 10:12] LABS: HEMATOCRIT 38.1 % (32.4-45.2); HEMOGLOBIN 13.1 GM/dL (10.7-15.3); MCH 33.7 pg (25.7-33.7); MCHC 34.4 g/dl (32.0-36.0); MEAN PLT VOLUME 10.6 fl (7.5-11.1); PLATELET COUNT 160 K/MM3 (134-434); RBC 3.89 M/mm3 (3.60-5.2); RDW 13.7 % (11.6-15.6); WHITE BLOOD COUNT 6.4 K/mm3 (4.0-10.0)
[2018-08-06] MEDS: BENZOCAINE 20 % GEL TUBE MM PRN ×2 (10:28→22:08)
[2018-08-06] MEDS: PRENATAL VITAMINS W/ FOLIC ACID TABLET (FP) PO SCH (10:28)
[2018-08-06] MEDS: NICOTINE 14 MG/24 HOURS TOPICAL PATCH TD SCH (10:28)
[2018-08-06] MEDS: ACETAMINOPHEN 325 MG TABLET (FP) PO PRN (10:29)
[2018-08-06 10:43] LABS: ALK PHOS 129 U/L (45-117); ANION GAP 5 MMOL/L (8-16); BILIRUBIN,TOTAL 0.5 mg/dL (0.2-1); BLOOD UREA NITROGEN 18 mg/dL (7-18); CALCIUM 8.8 mg/dL (8.5-10.1); CHLORIDE 105 mmol/L (98-107); CO2 29 mmol/L (21-32); CREATININE 0.7 mg/dL (0.55-1.3); GLUCOSE,RANDOM 97 mg/dL (74-106); POTASSIUM 4.2 mmol/L (3.5-5.1); SGOT/AST 13 U/L (15-37); SGPT/ALT 16 U/L (13-61); SODIUM 140 mmol/L (136-145); TOT PROT 5.7 g/dl (6.4-8.2)
[2018-08-06] MEDS ORDERED: METHADONE HCL 10 MG TABLET PO ONE (10:59)
[2018-08-06] MEDS ORDERED: METHADONE HCL 10 MG TABLET ONE (11:30)
[2018-08-06] MEDS ORDERED: METHADONE 80 MG, METHADONE 20 MG PO ONE (11:30)
[2018-08-06] MEDS ORDERED: METHADONE HCL 40 MG DISPERSABLE TABLET ONE (11:31)
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
--- NOTE | 2018-08-06 12:54 | PN ---
S CIWA - CIWA Score Nausea/Vomitin-No Nausea/No Vomiting Muscle Tremors: 3 Anxiety: 4-Mod. Anxious/Guarded Agitation: 2 Paroxysmal Sweats: No Perspiration Orientation: 0-Oriented Tacttile Disturbances: 0-None Auditory Disturbances: 2-Mild Harshness/Frighten Visual Disturbances: 3-Moderate Sensitivity Headache: 0-None Present CIWA-Ar Total Score: 14 [facility] Progress Note (SOAP) Subjective: Tremors, Anxious, Stomach Cramping, Interrupted Sleep, Constipation. Objective: PATIENT A & O X 3, OBSERVED AMBULATING ON UNIT. IN NO ACUTE DISTRESS. 08/06/18 12:52 Vital Signs Temperature 97.4 F L 08/06/18 09:40 Pulse Rate 96 H 08/06/18 09:40 Respiratory Rate 18 08/06/18 09:40 Blood Pressure 117/80 08/06/18 09:40 O2 Sat by Pulse Oximetry (%) Laboratory Tests 08/05/18 08/06/18 08/06/18 21:37 08:00 08:00 WBC 6.4 RBC 3.89 Hgb 13.1 Hct 38.1 MCV 98.0 H MCH 33.7 MCHC 34.4 RDW 13.7 Plt Count 160 MPV 10.6 Sodium 140 Potassium 4.2 Chloride 105 Carbon Dioxide 29 Anion Gap 5 L BUN 18 Creatinine 0.7 Creat Clearance w eGFR > 60 Random Glucose 97 Calcium 8.8 Total Bilirubin 0.5 AST 13 L ALT 16 Alkaline Phosphatase 129 H Total Protein 5.7 L Albumin 3.0 L Urine Color Yellow Urine Appearance Clear Urine pH 5.0 Ur Specific [place] 1.024 Urine Protein Negative Urine Glucose (UA) Negative Urine Ketones Negative Urine Blood Negative Urine Nitrite Negative Urine Bilirubin Negative Urine Urobilinogen Negative Ur Leukocyte Esterase Negative RPR Titer 08/06/18 08:00 WBC RBC Hgb Hct MCV MCH MCHC RDW Plt Count MPV Sodium Potassium Chloride Carbon Dioxide Anion Gap BUN Creatinine Creat Clearance w eGFR Random Glucose Calcium Total Bilirubin AST ALT Alkaline Phosphatase Total Protein Albumin Urine Color Urine Appearance Urine pH Ur Specific [place] Urine Protein Urine Glucose (UA) Urine Ketones Urine Blood Urine Nitrite Urine Bilirubin Urine Urobilinogen Ur Leukocyte Esterase RPR Titer Nonreactive LABS NOTED. Assessment: 08/06/18 12:53 WITHDRAWAL SYMPTOMS. Plan: CONTINUE DETOX. INCREASE DAILY PO FLUID INTAKE. PRN MOM FOR CONSTIPATION.
--- NOTE | 2018-08-06 13:05 | PN ---
[facility] Progress Note Note: patient is taking methadone 100 mg po daily dosage verified and can be start today
[2018-08-06] MEDS: PSEUDOEPHEDRINE HCL 30 MG TABLET PO PRN (16:58)
[2018-08-06] MEDS: MAGNESIUM HYDROX 2400MG/30ML ORAL SUSPENSION 30 ML CUP PO PRN (17:00)
[2018-08-06] MEDS: TRIMETHOBENZAMIDE HCL 200MG/2ML INJ IM PRN (17:03)
[2018-08-06] MEDS: THIAMINE HCL 100 MG TABLET (FP) PO SCH (22:02)
[2018-08-06] MEDS: BACLOFEN 10 MG TABLET (FP) PO PRN (22:03)
[2018-08-06] MEDS: traZODone HCL 100 MG TABLET (FP) PO SCH (22:03)
[2018-08-06] MEDS: guaiFENesin 200 MG/10 ML 10 ML UNIT-DOSE CUPS PO PRN (22:06)
[2018-08-07] MEDS ORDERED: METHADONE HCL 10 MG TABLET ONE (04:41)
[2018-08-07] MEDS ORDERED: METHADONE HCL 40 MG DISPERSABLE TABLET ONE (04:41)
[2018-08-07] MEDS ORDERED: METHADONE HCL 10 MG TABLET PO SCH (06:00)
[2018-08-07] MEDS: chlordiazePOXIDE HCL 25 MG CAPSULE PO SCH ×2 (06:14→10:34)
[2018-08-07] MEDS: METHADONE 80 MG, METHADONE 20 MG PO SCH (06:14)
[2018-08-07] MEDS: IBUPROFEN 400 MG TABLET (FP) PO PRN ×2 (06:18→17:39)
[2018-08-07] MEDS: NICOTINE 14 MG/24 HOURS TOPICAL PATCH TD SCH (10:33)
[2018-08-07] MEDS: PRENATAL VITAMINS W/ FOLIC ACID TABLET (FP) PO SCH (10:33)
[2018-08-07] MEDS: NICOTINE POLACRILEX 2 MG GUM BUC PRN ×3 (10:34→22:37)
[2018-08-07] MEDS: guaiFENesin 200 MG/10 ML 10 ML UNIT-DOSE CUPS PO PRN ×2 (10:36→22:09)
--- NOTE | 2018-08-07 14:50 | PN ---
[facility] CIWA - CIWA Score Nausea/Vomitin-No Nausea/No Vomiting Muscle Tremors: 2 Anxiety: 3 Agitation: 2 Paroxysmal Sweats: 1-Minimal Palms Moist Orientation: 1-Uncertain about Date Tacttile Disturbances: 0-None Auditory Disturbances: 0-None Visual Disturbances: 0-None Headache: 1-Very Mild CIWA-Ar Total Score: 10 S Progress Note (SOAP) Subjective: feeling better less sweating mild tremir sleep better at night Objective: 08/07/18 14:56 Vital Signs Temperature 98.2 F 08/07/18 13:36 Pulse Rate 96 H 08/07/18 13:36 Respiratory Rate 18 08/07/18 13:36 Blood Pressure 115/76 08/07/18 13:36 O2 Sat by Pulse Oximetry (%) Laboratory Last Values WBC 6.4 K/mm3 (4.0-10.0) 08/06/18 08:00 RBC 3.89 M/mm3 (3.60-5.2) 08/06/18 08:00 Hgb 13.1 GM/dL (10.7-15.3) 08/06/18 08:00 Hct 38.1 % (32.4-45.2) 08/06/18 08:00 MCV 98.0 fl (80-96) H 08/06/18 08:00 MCH 33.7 pg (25.7-33.7) 08/06/18 08:00 MCHC 34.4 g/dl (32.0-36.0) 08/06/18 08:00 RDW 13.7 % (11.6-15.6) 08/06/18 08:00 Plt Count 160 K/MM3 (134-434) 08/06/18 08:00 MPV 10.6 fl (7.5-11.1) 08/06/18 08:00 Sodium 140 mmol/L (136-145) 08/06/18 08:00 Potassium 4.2 mmol/L (3.5-5.1) 08/06/18 08:00 Chloride 105 mmol/L (98-107) 08/06/18 08:00 Carbon Dioxide 29 mmol/L (21-32) 08/06/18 08:00 Anion Gap 5 MMOL/L (8-16) L 08/06/18 08:00 BUN 18 mg/dL (7-18) 08/06/18 08:00 Creatinine 0.7 mg/dL (0.55-1.3) 08/06/18 08:00 Creat Clearance w eGFR > 60 (>60) 08/06/18 08:00 Random Glucose 97 mg/dL (74-106) 08/06/18 08:00 Calcium 8.8 mg/dL (8.5-10.1) 08/06/18 08:00 Total Bilirubin 0.5 mg/dL (0.2-1) 08/06/18 08:00 AST 13 U/L (15-37) L 08/06/18 08:00 ALT 16 U/L (13-61) 08/06/18 08:00 Alkaline Phosphatase 129 U/L (45-117) H 08/06/18 08:00 Total Protein 5.7 g/dl (6.4-8.2) L 08/06/18 08:00 Albumin 3.0 g/dl (3.4-5.0) L 08/06/18 08:00 Urine Color Yellow 08/05/18 21:37 Urine Appearance Clear 08/05/18 21:37 Urine pH 5.0 (5.0-8.0) 08/05/18 21:37 Ur Specific [place] 1.024 (1.010-1.035) 08/05/18 21:37 Urine Protein Negative (NEGATIVE) 08/05/18 21:37 Urine Glucose (UA) Negative (NEGATIVE) 08/05/18 21:37 Urine Ketones Negative (NEGATIVE) 08/05/18 21:37 Urine Blood Negative (NEGATIVE) 08/05/18 21:37 Urine Nitrite Negative (NEGATIVE) 08/05/18 21:37 Urine Bilirubin Negative (<2.0 mg/dL) 08/05/18 21:37 Urine Urobilinogen Negative mg/dL (0.2-1.0) 08/05/18 21:37 Ur Leukocyte Esterase Negative (NEGATIVE) 08/05/18 21:37 RPR Titer Nonreactive (NONREACTIVE) 08/06/18 08:00 lab noted Assessment: 08/07/18 14:56 mild alcohol withdrawal sx Plan: continue detox
[2018-08-07] MEDS ORDERED: chlordiazePOXIDE HCL 10 MG CAPSULE PO PRN (17:00)
[2018-08-07] MEDS: chlordiazePOXIDE HCL 10 MG CAPSULE PO SCH ×2 (17:38→22:08)
[2018-08-07] MEDS: BENZOCAINE 20 % GEL TUBE MM PRN (17:41)
[2018-08-07] MEDS: ACETAMINOPHEN 325 MG TABLET (FP) PO PRN (21:07)
[2018-08-07] MEDS: traZODone HCL 100 MG TABLET (FP) PO SCH (21:08)
[2018-08-07] MEDS: BACLOFEN 10 MG TABLET (FP) PO PRN (21:08)
--- NOTE | 2018-08-07 21:29 | PN ---
[facility] Progress Note Note: c/o of insomnia benadryl 50 mg hs po one time continua to monitor
[2018-08-07] MEDS ORDERED: diphenhydrAMINE HCL 25 MG CAPSULE (FP) PO ONE (21:30)
[2018-08-07] MEDS: THIAMINE HCL 100 MG TABLET (FP) PO SCH (22:08)
[2018-08-08] MEDS: ACETAMINOPHEN 325 MG TABLET (FP) PO PRN (04:05)
[2018-08-08] MEDS: BENZOCAINE 20 % GEL TUBE MM PRN ×2 (04:07→10:32)
[2018-08-08] MEDS ORDERED: METHADONE HCL 10 MG TABLET ONE (04:13)
[2018-08-08] MEDS ORDERED: METHADONE HCL 40 MG DISPERSABLE TABLET ONE (04:14)
[2018-08-08] MEDS: METHADONE 80 MG, METHADONE 20 MG PO SCH (05:45)
[2018-08-08] MEDS: chlordiazePOXIDE HCL 10 MG CAPSULE PO SCH ×2 (05:46→10:32)
[2018-08-08] MEDS: TRIMETHOBENZAMIDE HCL 200MG/2ML INJ IM PRN (09:07)
[2018-08-08] MEDS: IBUPROFEN 400 MG TABLET (FP) PO PRN (09:15)
[2018-08-08] MEDS: NICOTINE POLACRILEX 2 MG GUM BUC PRN ×2 (09:15→13:41)
[2018-08-08] MEDS: PRENATAL VITAMINS W/ FOLIC ACID TABLET (FP) PO SCH (10:32)
[2018-08-08] MEDS: NICOTINE 14 MG/24 HOURS TOPICAL PATCH TD SCH (10:33)
[2018-08-08] MEDS: PSEUDOEPHEDRINE HCL 30 MG TABLET PO PRN (10:34)
[2018-08-08 13:22] VITALS: BP 120/75; PULSE 91; TEMP 97.8
--- NOTE | 2018-08-08 14:32 | DS ---
[facility] Detox Discharge Summary Admission Date: 08/05/18 Discharge Date: 08/08/18 - History Present History: Alcohol Dependence Additional Comments: 37 years old female admitted on 08/05/18 for alcohol withdrawal stabilization feeling better prefer alcohol rehab today after[facility] - Physical Exam Results Vital Signs: Vital Signs Temperature 97.8 F 08/08/18 13:21 Pulse Rate 91 H 08/08/18 13:21 Respiratory Rate 20 08/08/18 13:21 Blood Pressure 120/75 08/08/18 13:21 O2 Sat by Pulse Oximetry (%) Pertinent Admission Physical Exam Findings: alcohol withdrawal sx Laboratory Last Values WBC 6.4 K/mm3 (4.0-10.0) 08/06/18 08:00 RBC 3.89 M/mm3 (3.60-5.2) 08/06/18 08:00 Hgb 13.1 GM/dL (10.7-15.3) 08/06/18 08:00 Hct 38.1 % (32.4-45.2) 08/06/18 08:00 MCV 98.0 fl (80-96) H 08/06/18 08:00 MCH 33.7 pg (25.7-33.7) 08/06/18 08:00 MCHC 34.4 g/dl (32.0-36.0) 08/06/18 08:00 RDW 13.7 % (11.6-15.6) 08/06/18 08:00 Plt Count 160 K/MM3 (134-434) 08/06/18 08:00 MPV 10.6 fl (7.5-11.1) 08/06/18 08:00 Sodium 140 mmol/L (136-145) 08/06/18 08:00 Potassium 4.2 mmol/L (3.5-5.1) 08/06/18 08:00 Chloride 105 mmol/L (98-107) 08/06/18 08:00 Carbon Dioxide 29 mmol/L (21-32) 08/06/18 08:00 Anion Gap 5 MMOL/L (8-16) L 08/06/18 08:00 BUN 18 mg/dL (7-18) 08/06/18 08:00 Creatinine 0.7 mg/dL (0.55-1.3) 08/06/18 08:00 Creat Clearance w eGFR > 60 (>60) 08/06/18 08:00 Random Glucose 97 mg/dL (74-106) 08/06/18 08:00 Calcium 8.8 mg/dL (8.5-10.1) 08/06/18 08:00 Total Bilirubin 0.5 mg/dL (0.2-1) 08/06/18 08:00 AST 13 U/L (15-37) L 08/06/18 08:00 ALT 16 U/L (13-61) 08/06/18 08:00 Alkaline Phosphatase 129 U/L (45-117) H 08/06/18 08:00 Total Protein 5.7 g/dl (6.4-8.2) L 08/06/18 08:00 Albumin 3.0 g/dl (3.4-5.0) L 08/06/18 08:00 Urine Color Yellow 08/05/18 21:37 Urine Appearance Clear 08/05/18 21:37 Urine pH 5.0 (5.0-8.0) 08/05/18 21:37 Ur Specific [place] 1.024 (1.010-1.035) 08/05/18 21:37 Urine Protein Negative (NEGATIVE) 08/05/18 21:37 Urine Glucose (UA) Negative (NEGATIVE) 08/05/18 21:37 Urine Ketones Negative (NEGATIVE) 08/05/18 21:37 Urine Blood Negative (NEGATIVE) 08/05/18 21:37 Urine Nitrite Negative (NEGATIVE) 08/05/18 21:37 Urine Bilirubin Negative (<2.0 mg/dL) 08/05/18 21:37 Urine Urobilinogen Negative mg/dL (0.2-1.0) 08/05/18 21:37 Ur Leukocyte Esterase Negative (NEGATIVE) 08/05/18 21:37 RPR Titer Nonreactive (NONREACTIVE) 08/06/18 08:00 lab noted - Treatment Hospital Course: Detox Protocol Followed, Detoxed Safely, Responded well, Discharged Condition Good, Rehab Referral Accepted Patient has Accepted a [facility] Referral to: [facility] - Medication Discharge Medications: Ambulatory Orders Methadone [Dolophine -] 100 mg PO DAILY 04/13/18 Zolpidem Tartrate [Ambien] 10 mg PO HS 04/13/18 traZODone HCL [Desyrel -] 100 mg PO HS #30 tablet 05/08/18 Quetiapine Fumarate [Seroquel -] 100 mg PO DAILY 08/05/18 Quetiapine Fumarate [Seroquel -] 300 mg PO HS 08/05/18 Albuterol Sulfate Inhaler - [Ventolin HFA Inhaler -] 2 inh PO Q4H #1 inhaler 05/16 - Diagnosis (1) Alcohol dependence with withdrawal Status: Acute Qualifiers: Complication of substance-induced condition: uncomplicated Qualified Code(s ): F10.230 - Alcohol dependence with withdrawal, uncomplicated (2) Asthma Status: Chronic Qualifiers: Asthma severity: mild Asthma persistence: intermittent Asthma complication type: uncomplicated Qualified Code(s): J45.20 - Mild intermittent asthma, uncomplicated (3) Methadone maintenance therapy patient Status: Chronic (4) Nicotine dependence Status: Acute Qualifiers: Nicotine product type: cigarettes Substance use status: in withdrawal Qualified Code(s): F17.213 - Nicotine dependence, cigarettes, with withdrawal (5) Substance induced mood disorder Status: Suspected - AMA Did Patient Leave Against Medical Advice: No
[2018-08-08] MEDS ORDERED: chlordiazePOXIDE HCL 10 MG CAPSULE PO SCH (17:00)
== END 2018-08-08 13:48 | disposition other institution (70) | DRG 773 ==
LOC: YASAS 08:52 → Y3N 11:31
PROVIDERS: ADMIT Surgery; ATTEND Surgery
PROC: HZ2ZZZZ Detoxification Services for Substance Abuse Treatment (ICD-10-PCS; principal; 2018-08-05)
DX: F10.230 Alcohol dependence with withdrawal, uncomplicated (principal); F11.20 Opioid dependence, uncomplicated; F12.20 Cannabis dependence, uncomplicated; F17.213 Nicotine dependence, cigarettes, with withdrawal; F19.24 Other psychoactive substance dependence with psychoactive substance-induced mood disorder; F41.9 Anxiety disorder, unspecified; J45.20 Mild intermittent asthma, uncomplicated; G47.00 Insomnia, unspecified; R01.1 Cardiac murmur, unspecified; E66.9 Obesity, unspecified; Z68.41 Body mass index [BMI] 40.0-44.9, adult; Z86.69 Personal history of other diseases of the nervous system and sense organs; Z91.5 Personal history of self-harm
CPT/HCPCS: 36415; 80053; 81003; 85027; 86593; J0475

== ENCOUNTER 2018-08-08 13:02 | Inpatient (IN) | payer OTHER ==
[2018-08-08] MEDS ORDERED: LOPERAMIDE HCL 2 MG CAPSULE PO PRN (14:37)
[2018-08-08] MEDS ORDERED: MAGNESIUM CITRATE 300 ML BOTTLE PO PRN (14:37)
[2018-08-08] MEDS ORDERED: MAG HYDROX/AL HYDROX/SIMETH 30 ML UNIT-DOSE CUP PO PRN (14:37)
[2018-08-08] MEDS ORDERED: MAGNESIUM HYDROX 2400MG/30ML ORAL SUSPENSION 30 ML CUP PO PRN (14:37)
[2018-08-08] MEDS ORDERED: MENTHOL/PHENOL 1 EACH UD MM PRN (14:37)
--- NOTE | 2018-08-08 14:37 | HP ---
[facility] Rehab Assess/Revision - Admission History Admitted to Rehab from: [facility] Date of Admission to Rehab: 08/08/18 - Vital signs Vital Signs: Vital Signs Period Temp Pulse Resp BP Sys/Glover Pulse Ox Last 24 Hr 97.3 F 97 18 113/74 - Findings Detox History & Physical reviewed: Yes Concur with findings: Yes Comments/Additional Findings: transferred from detox to rehab admission as per protocol Inpatient Rehab Admission - Rehab Decision to Admit Inpatient rehab admission?: Yes - Initial Determination Are CD services needed?: Yes Free of communicable disease: Yes Not in need of hospitalization: Yes - Rehab Admission Criteria Previous failed treatment: Yes Poor recovery environment: Yes Comorbidities: Yes Lacks judgement: No Patient is meeting Inpatient Rehab admission criteria:: Yes
[2018-08-08] MEDS ORDERED: ALBUTEROL SO4 8 GM HFA INHALER IH PRN (14:38)
[2018-08-08] MEDS ORDERED: COLLOIDAL OATMEAL 1 BAR EACH TP PRN (14:41)
[2018-08-08] MEDS ORDERED: BENZOCAINE 20% 57 GM BOTTLE TP SCH (15:30)
--- NOTE | 2018-08-08 15:57 | PN ---
[facility] Progress Note Note: pharmacy does not carry benzocaine spray; ordered anbesol
[2018-08-08] MEDS ORDERED: PT OWN MED DRAWER 7, Y5N ONE ×5 (16:43→22:49)
[2018-08-08] MEDS: NICOTINE POLACRILEX 2 MG GUM BUC PRN (17:03)
[2018-08-08] MEDS: THIAMINE HCL 100 MG TABLET (FP) PO SCH (21:09)
[2018-08-08] MEDS: MELATONIN 5 MG TABLETS PO PRN (21:10)
[2018-08-08] MEDS ORDERED: diphenhydrAMINE HCL 50 MG CAPSULE PO PRN (21:51)
--- NOTE | 2018-08-08 21:52 | PN ---
[facility] Progress Note Note: Vital Signs Temperature 97.3 F L 08/08/18 14:14 Pulse Rate 97 H 08/08/18 14:14 Respiratory Rate 18 08/08/18 14:14 Blood Pressure 113/74 08/08/18 14:14 O2 Sat by Pulse Oximetry (%) c/o insomnia benadryl 50 mg hs continue to monitor
[2018-08-08] MEDS: IBUPROFEN 400 MG TABLET (FP) PO PRN (22:46)
[2018-08-08] MEDS: BENZOCAINE 20 % GEL TUBE MM PRN (22:48)
[2018-08-09] MEDS: ACETAMINOPHEN 325 MG TABLET (FP) PO PRN ×2 (00:53→10:15)
[2018-08-09] MEDS ORDERED: METHADONE HCL 40 MG DISPERSABLE TABLET PO SCH (06:00)
[2018-08-09] MEDS ORDERED: METHADONE HCL 10 MG TABLET ONE (06:21)
[2018-08-09] MEDS ORDERED: METHADONE HCL 40 MG DISPERSABLE TABLET ONE (06:21)
[2018-08-09] MEDS: METHADONE 80 MG, METHADONE 20 MG PO SCH (06:23)
[2018-08-09] MEDS: IBUPROFEN 400 MG TABLET (FP) PO PRN ×2 (06:24→17:33)
[2018-08-09] MEDS: BENZOCAINE 20 % GEL TUBE MM PRN ×3 (06:25→21:25)
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
[2018-08-09] MEDS: PRENATAL VITAMINS W/ FOLIC ACID TABLET (FP) PO SCH (10:13)
[2018-08-09] MEDS: guaiFENesin 200 MG/10 ML 10 ML UNIT-DOSE CUPS PO PRN (10:16)
[2018-08-09] MEDS: P-EPHED 60MG/TRIPROLIDI 2.5MG TABLET PO PRN (10:17)
[2018-08-09] MEDS ORDERED: TRIMETHOBENZAMIDE HCL 300 MG CAPSULE PO PRN (10:48)
--- NOTE | 2018-08-09 11:26 | PN ---
[facility] Progress Note (SOAP) Subjective: c/o nausea and vomited breakfast. Also reports that she is swallowing ambesol. Reports hx of hernia, BM this AM, but she had not had a BM for 9 days prior. Objective: 08/09/18 11:23 abd soft, non-tender, non-distended, except for left lower quad, where hernia can be felt. 08/09/18 11:25 Assessment: 08/09/18 11:24 Nausea; hx of hernia 08/09/18 11:26 Plan: Tigan ordered. Follow-up with PCP re:hernia. Encouraged client to take Mylanta as needed.
[2018-08-09] MEDS: diphenhydrAMINE HCL 25 MG CAPSULE (FP) PO PRN ×3 (11:33→21:19)
[2018-08-09] MEDS: MAG HYDROX/ALH/SMC/DPHA/LIDO 240 ML MOUTHWASH MM SCH ×2 (12:40→18:23)
[2018-08-09] MEDS ORDERED: PT OWN MED DRAWER 7, Y5N ONE ×3 (15:56→21:21)
[2018-08-09] MEDS: NICOTINE POLACRILEX 2 MG GUM BUC PRN ×2 (19:01→21:24)
[2018-08-09] MEDS: THIAMINE HCL 100 MG TABLET (FP) PO SCH (21:19)
[2018-08-09] MEDS: QUEtiapine FUMARATE 100 MG TABLET (FP) PO SCH (21:22)
[2018-08-09] MEDS: traZODone HCL 100 MG TABLET (FP) PO SCH (21:22)
[2018-08-09] MEDS: MELATONIN 5 MG TABLETS PO PRN (21:23)
[2018-08-10] MEDS: MAG HYDROX/ALH/SMC/DPHA/LIDO 240 ML MOUTHWASH MM SCH ×5 (01:09→23:52)
[2018-08-10] MEDS ORDERED: METHADONE HCL 40 MG DISPERSABLE TABLET ONE (03:32)
[2018-08-10] MEDS ORDERED: METHADONE HCL 10 MG TABLET ONE (03:32)
[2018-08-10] MEDS: METHADONE 80 MG, METHADONE 20 MG PO SCH (06:18)
[2018-08-10] MEDS: IBUPROFEN 400 MG TABLET (FP) PO PRN (06:20)
[2018-08-10] MEDS: PRENATAL VITAMINS W/ FOLIC ACID TABLET (FP) PO SCH (10:41)
[2018-08-10] MEDS: P-EPHED 60MG/TRIPROLIDI 2.5MG TABLET PO PRN (10:44)
[2018-08-10] MEDS: NICOTINE POLACRILEX 2 MG GUM BUC PRN ×2 (10:45→14:50)
[2018-08-10] MEDS: BENZOCAINE 20 % GEL TUBE MM PRN ×2 (10:46→22:01)
[2018-08-10] MEDS: diphenhydrAMINE HCL 25 MG CAPSULE (FP) PO PRN ×2 (10:47→19:44)
--- NOTE | 2018-08-10 11:57 | PN ---
[facility] Progress Note Note: PT C/O RIGHT UPPER AND BOTTOM TEETH ACHES THAT RADIATE INTO HER RIGHT EAR- THROBBING WITH SWELLING TO LOWER JAW. DENIES FEVER, COUGH OR RUNNY NOSE. ALSO C /O PAIN TO THROAT. PT REPORTS SHE WENT TO THE DENTIST BEFORE COMING HERE AND XRAY WAS TAKEN THAT SHOWED CAVITY AND WAS SUPPOSED TO FOLLOW UP WITH THE ORAL SURGEON BUT CAME HERE INSTEAD BECAUSE OF A.C.S. ISSUE WITH HER FAMILY. PT ALSO C/O NAUSEA AND VOMITING SINCE YESTERDAY. TIGAN NOT EFFECTIVE Vital Signs (72 hours) 08/08/18 08/09/18 08/09/18 14:14 03:30 07:01 Temperature 97.3 F L 97.9 F Pulse Rate 97 H 81 Respiratory 18 18 18 Rate Blood Pressure 113/74 124/82 08/10/18 08/10/18 08/10/18 00:30 03:30 07:27 Temperature 98.0 F Pulse Rate 87 Respiratory 18 18 18 Rate Blood Pressure 108/73 ORAL EXAM: CRACKED UPPER PREMOLAR WITH REDNESS AND A LOWER MISSING MOLAR,GUM REDNESS AND SLIGHT SWELLING . TEETH IN POOR STATE OF REPAIR. SLIGHT SWELLING AND TENDERNESS TO LOWER JAW. THROAT:ENLARGED TONSILS GRADE 3+ A:TOOTH ABSCESS GINGIVITIS TOOTH DECAY PLAN:AMOXICILLIN 500 MG PO TID X 10 DAYS PERIDEX MOUTH RINSE ZOFRAN SL PRN FOR N/V INCREASE MOTRIN 600 MG PO Q6H PRN FOR PAIN INCREASE PO FLUIDS
[2018-08-10] MEDS ORDERED: ONDANSETRON *ODT* 4 MG TABLET SL PRN (12:01)
[2018-08-10] MEDS: CHLORHEXIDINE GLUCONATE 0.12% 15ML CUP MM SCH ×2 (12:45→21:29)
[2018-08-10] MEDS ORDERED: PT OWN MED DRAWER 7, Y5N ONE ×2 (14:17→16:03)
[2018-08-10] MEDS: AMOXICILLIN 500 MG CAPSULE (FP) PO SCH ×2 (14:27→21:05)
[2018-08-10] MEDS: IBUPROFEN 600 MG TABLET (FP) PO PRN ×2 (14:33→21:07)
[2018-08-10] MEDS: NICOTINE 14 MG/24 HOURS TOPICAL PATCH TD PRN (14:50)
[2018-08-10] MEDS: traZODone HCL 100 MG TABLET (FP) PO SCH (21:05)
[2018-08-10] MEDS: THIAMINE HCL 100 MG TABLET (FP) PO SCH (21:05)
[2018-08-10] MEDS: QUEtiapine FUMARATE 100 MG TABLET (FP) PO SCH (21:05)
[2018-08-10] MEDS: MELATONIN 5 MG TABLETS PO PRN (21:06)
[2018-08-11] MEDS ORDERED: METHADONE HCL 40 MG DISPERSABLE TABLET ONE (05:49)
[2018-08-11] MEDS ORDERED: METHADONE HCL 10 MG TABLET ONE (05:49)
[2018-08-11] MEDS: METHADONE 80 MG, METHADONE 20 MG PO SCH (06:17)
[2018-08-11] MEDS: AMOXICILLIN 500 MG CAPSULE (FP) PO SCH ×3 (06:17→21:24)
[2018-08-11] MEDS: NICOTINE POLACRILEX 2 MG GUM BUC PRN ×4 (06:20→21:27)
[2018-08-11] MEDS: MAG HYDROX/ALH/SMC/DPHA/LIDO 240 ML MOUTHWASH MM SCH ×3 (06:51→18:25)
[2018-08-11] MEDS: diphenhydrAMINE HCL 25 MG CAPSULE (FP) PO PRN ×3 (10:30→21:24)
[2018-08-11] MEDS: PRENATAL VITAMINS W/ FOLIC ACID TABLET (FP) PO SCH (10:30)
[2018-08-11] MEDS: NICOTINE 14 MG/24 HOURS TOPICAL PATCH TD PRN (10:31)
[2018-08-11] MEDS: CHLORHEXIDINE GLUCONATE 0.12% 15ML CUP MM SCH ×2 (10:31→21:26)
[2018-08-11] MEDS: COLLOIDAL OATMEAL 1 BAR EACH TP PRN (10:31)
[2018-08-11] MEDS ORDERED: PT OWN MED DRAWER 7, Y5N ONE ×4 (10:32→21:26)
[2018-08-11] MEDS: IBUPROFEN 600 MG TABLET (FP) PO PRN ×2 (10:32→16:54)
[2018-08-11] MEDS: P-EPHED 60MG/TRIPROLIDI 2.5MG TABLET PO PRN (10:35)
[2018-08-11] MEDS: BENZOCAINE 20 % GEL TUBE MM PRN (12:40)
[2018-08-11] MEDS: QUEtiapine FUMARATE 100 MG TABLET (FP) PO SCH (21:24)
[2018-08-11] MEDS: MELATONIN 5 MG TABLETS PO PRN (21:24)
[2018-08-11] MEDS: THIAMINE HCL 100 MG TABLET (FP) PO SCH (21:24)
[2018-08-11] MEDS: traZODone HCL 100 MG TABLET (FP) PO SCH (21:24)
[2018-08-11] MEDS: guaiFENesin 200 MG/10 ML 10 ML UNIT-DOSE CUPS PO PRN (21:28)
[2018-08-12] MEDS: MAG HYDROX/ALH/SMC/DPHA/LIDO 240 ML MOUTHWASH MM SCH ×4 (00:15→18:39)
[2018-08-12] MEDS ORDERED: METHADONE HCL 10 MG TABLET ONE (05:57)
[2018-08-12] MEDS ORDERED: METHADONE HCL 40 MG DISPERSABLE TABLET ONE (05:58)
[2018-08-12] MEDS: METHADONE 80 MG, METHADONE 20 MG PO SCH (06:21)
[2018-08-12] MEDS: AMOXICILLIN 500 MG CAPSULE (FP) PO SCH ×3 (06:21→21:32)
[2018-08-12] MEDS: NICOTINE POLACRILEX 2 MG GUM BUC PRN ×5 (06:23→22:49)
[2018-08-12] MEDS ORDERED: PT OWN MED DRAWER 7, Y5N ONE ×3 (08:40→21:34)
[2018-08-12] MEDS: IBUPROFEN 600 MG TABLET (FP) PO PRN ×2 (08:48→17:47)
[2018-08-12] MEDS: BENZOCAINE 20 % GEL TUBE MM PRN (08:51)
[2018-08-12] MEDS: PRENATAL VITAMINS W/ FOLIC ACID TABLET (FP) PO SCH (10:43)
[2018-08-12] MEDS: CHLORHEXIDINE GLUCONATE 0.12% 15ML CUP MM SCH ×2 (10:43→21:36)
[2018-08-12] MEDS: guaiFENesin 200 MG/10 ML 10 ML UNIT-DOSE CUPS PO PRN ×2 (10:44→21:36)
[2018-08-12] MEDS: diphenhydrAMINE HCL 25 MG CAPSULE (FP) PO PRN ×2 (10:44→17:48)
[2018-08-12] MEDS: ACETAMINOPHEN 325 MG TABLET (FP) PO PRN (12:58)
--- NOTE | 2018-08-12 18:48 | PN ---
[facility] Progress Note Note: patient has nausea and vomiting Vital Signs Temperature 97.8 F 08/12/18 07:24 Pulse Rate 86 08/12/18 07:24 Respiratory Rate 18 08/12/18 07:24 Blood Pressure 131/60 08/12/18 07:24 O2 Sat by Pulse Oximetry (%) tigan 200 mgs im q 8 hrs for nausea and vomiting close monitoring
[2018-08-12] MEDS: TRIMETHOBENZAMIDE HCL 200MG/2ML INJ IM PRN (20:33)
[2018-08-12] MEDS: THIAMINE HCL 100 MG TABLET (FP) PO SCH (21:32)
[2018-08-12] MEDS: QUEtiapine FUMARATE 100 MG TABLET (FP) PO SCH (21:32)
[2018-08-12] MEDS: traZODone HCL 100 MG TABLET (FP) PO SCH (21:32)
[2018-08-12] MEDS: MELATONIN 5 MG TABLETS PO PRN (21:35)
[2018-08-12] MEDS: P-EPHED 60MG/TRIPROLIDI 2.5MG TABLET PO PRN (21:36)
[2018-08-13] MEDS: MAG HYDROX/ALH/SMC/DPHA/LIDO 240 ML MOUTHWASH MM SCH ×4 (00:53→18:30)
[2018-08-13] MEDS ORDERED: METHADONE HCL 10 MG TABLET ONE (02:16)
[2018-08-13] MEDS ORDERED: METHADONE HCL 40 MG DISPERSABLE TABLET ONE (02:16)
[2018-08-13] MEDS: AMOXICILLIN 500 MG CAPSULE (FP) PO SCH ×3 (06:15→21:26)
[2018-08-13] MEDS: METHADONE 80 MG, METHADONE 20 MG PO SCH (06:16)
[2018-08-13] MEDS: NICOTINE POLACRILEX 2 MG GUM BUC PRN ×4 (06:17→21:25)
[2018-08-13] MEDS: TRIMETHOBENZAMIDE HCL 200MG/2ML INJ IM PRN (08:59)
[2018-08-13] MEDS: CHLORHEXIDINE GLUCONATE 0.12% 15ML CUP MM SCH ×2 (10:26→21:25)
[2018-08-13] MEDS: PRENATAL VITAMINS W/ FOLIC ACID TABLET (FP) PO SCH (10:26)
[2018-08-13] MEDS: diphenhydrAMINE HCL 25 MG CAPSULE (FP) PO PRN ×3 (10:27→21:24)
[2018-08-13] MEDS: guaiFENesin 200 MG/10 ML 10 ML UNIT-DOSE CUPS PO PRN (10:28)
[2018-08-13] MEDS ORDERED: PT OWN MED DRAWER 7, Y5N ONE (12:31)
[2018-08-13] MEDS: IBUPROFEN 600 MG TABLET (FP) PO PRN (12:32)
[2018-08-13] MEDS: BENZOCAINE 20 % GEL TUBE MM PRN (12:34)
[2018-08-13] MEDS: traZODone HCL 100 MG TABLET (FP) PO SCH (21:24)
[2018-08-13] MEDS: THIAMINE HCL 100 MG TABLET (FP) PO SCH (21:24)
[2018-08-13] MEDS: QUEtiapine FUMARATE 100 MG TABLET (FP) PO SCH (21:24)
[2018-08-13] MEDS: MELATONIN 5 MG TABLETS PO PRN (21:25)
[2018-08-14] MEDS: MAG HYDROX/ALH/SMC/DPHA/LIDO 240 ML MOUTHWASH MM SCH ×5 (00:32→23:34)
[2018-08-14] MEDS ORDERED: METHADONE HCL 10 MG TABLET ONE (03:29)
[2018-08-14] MEDS ORDERED: METHADONE HCL 40 MG DISPERSABLE TABLET ONE (03:29)
[2018-08-14] MEDS: AMOXICILLIN 500 MG CAPSULE (FP) PO SCH ×3 (06:18→21:10)
[2018-08-14] MEDS: METHADONE 80 MG, METHADONE 20 MG PO SCH (06:19)
[2018-08-14] MEDS: NICOTINE POLACRILEX 2 MG GUM BUC PRN ×5 (06:20→21:16)
[2018-08-14] MEDS: IBUPROFEN 600 MG TABLET (FP) PO PRN (09:14)
[2018-08-14] MEDS: PRENATAL VITAMINS W/ FOLIC ACID TABLET (FP) PO SCH (09:14)
[2018-08-14] MEDS: diphenhydrAMINE HCL 25 MG CAPSULE (FP) PO PRN ×3 (09:16→19:00)
[2018-08-14] MEDS ORDERED: PT OWN MED DRAWER 7, Y5N ONE ×4 (09:17→21:30)
[2018-08-14] MEDS: CHLORHEXIDINE GLUCONATE 0.12% 15ML CUP MM SCH ×2 (09:17→21:15)
--- NOTE | 2018-08-14 11:55 | PN ---
[facility] Progress Note Note: PT C/O SKIN "GROWTH" AROUND UMBILICAL AREA. DENIES PAIN. Vital Signs (72 hours) 08/12/18 08/12/18 08/12/18 00:30 03:30 07:24 Temperature 97.8 F Pulse Rate 86 Respiratory 18 18 18 Rate Blood Pressure 131/60 08/13/18 08/13/18 08/13/18 00:30 03:30 07:12 Temperature 97.9 F Pulse Rate 78 Respiratory 18 18 18 Rate Blood Pressure 104/70 08/14/18 08/14/18 08/14/18 00:30 03:30 07:09 Temperature 98.1 F Pulse Rate 71 Respiratory 18 18 18 Rate Blood Pressure 116/76 ABDOMEN:PROTRUDING ABDOMEN; ADIPOSITY;HEALED SCAR FROM OLD PIERCING ABOVE UMBILICAL AREA. A MOVABLE FLUID-LIKE FILLED SKIN GROWTH AT SITE OF OLD PIERCING , NOT TENDER, NO REDNESS, NO DISCHARGE NOTED. A:R/O CYST R/O LIPOMA PLAN:MONITOR AND REPORT TO STAFF IF ANY CHANGE NOTED FOLLOW UP WITH DERMATOLOGY AFTER REHAB TREATMENT.
[2018-08-14] MEDS: traZODone HCL 100 MG TABLET (FP) PO SCH (21:10)
[2018-08-14] MEDS: QUEtiapine FUMARATE 100 MG TABLET (FP) PO SCH (21:10)
[2018-08-14] MEDS: THIAMINE HCL 100 MG TABLET (FP) PO SCH (21:10)
[2018-08-14] MEDS: MELATONIN 5 MG TABLETS PO PRN (21:10)
[2018-08-14] MEDS: guaiFENesin 200 MG/10 ML 10 ML UNIT-DOSE CUPS PO PRN (21:13)
[2018-08-14] MEDS: BENZOCAINE 20 % GEL TUBE MM PRN (21:31)
[2018-08-15] MEDS ORDERED: METHADONE HCL 40 MG DISPERSABLE TABLET ONE (06:28)
[2018-08-15] MEDS ORDERED: METHADONE HCL 10 MG TABLET ONE (06:28)
[2018-08-15] MEDS: METHADONE 80 MG, METHADONE 20 MG PO SCH (06:32)
[2018-08-15] MEDS: AMOXICILLIN 500 MG CAPSULE (FP) PO SCH ×3 (06:33→21:21)
[2018-08-15] MEDS: MAG HYDROX/ALH/SMC/DPHA/LIDO 240 ML MOUTHWASH MM SCH ×3 (06:34→18:30)
[2018-08-15] MEDS: NICOTINE POLACRILEX 2 MG GUM BUC PRN ×4 (06:34→18:04)
[2018-08-15] MEDS: PRENATAL VITAMINS W/ FOLIC ACID TABLET (FP) PO SCH (10:17)
[2018-08-15] MEDS: CHLORHEXIDINE GLUCONATE 0.12% 15ML CUP MM SCH ×2 (10:17→21:25)
[2018-08-15] MEDS: COLLOIDAL OATMEAL 1 BAR EACH TP PRN (10:18)
[2018-08-15] MEDS: IBUPROFEN 600 MG TABLET (FP) PO PRN (10:20)
[2018-08-15] MEDS: diphenhydrAMINE HCL 25 MG CAPSULE (FP) PO PRN ×3 (10:20→19:16)
[2018-08-15] MEDS ORDERED: PT OWN MED DRAWER 7, Y5N ONE ×2 (10:40→21:26)
[2018-08-15] MEDS: ACETAMINOPHEN 325 MG TABLET (FP) PO PRN (14:17)
--- NOTE | 2018-08-15 14:43 | PN ---
S Progress Note Note: Chronic lower back pain, uses lidocaine patches in the community. Ordered,
[2018-08-15] MEDS: traZODone HCL 100 MG TABLET (FP) PO SCH (21:21)
[2018-08-15] MEDS: QUEtiapine FUMARATE 100 MG TABLET (FP) PO SCH (21:21)
[2018-08-15] MEDS: LIDOCAINE PATCH REMOVAL MC SCH (21:22)
[2018-08-15] MEDS: guaiFENesin 200 MG/10 ML 10 ML UNIT-DOSE CUPS PO PRN (21:24)
[2018-08-15] MEDS: THIAMINE HCL 100 MG TABLET (FP) PO SCH (21:24)
[2018-08-15] MEDS ORDERED: MELATONIN 5 MG TABLETS PO ONE (22:00)
[2018-08-16] MEDS: MAG HYDROX/ALH/SMC/DPHA/LIDO 240 ML MOUTHWASH MM SCH ×4 (00:55→19:52)
[2018-08-16] MEDS ORDERED: METHADONE HCL 10 MG TABLET ONE (03:23)
[2018-08-16] MEDS ORDERED: METHADONE HCL 40 MG DISPERSABLE TABLET ONE (03:23)
[2018-08-16] MEDS ORDERED: PT OWN MED DRAWER 7, Y5N ONE ×2 (03:24→18:11)
[2018-08-16] MEDS: METHADONE 80 MG, METHADONE 20 MG PO SCH (06:30)
[2018-08-16] MEDS: AMOXICILLIN 500 MG CAPSULE (FP) PO SCH ×3 (06:31→21:25)
[2018-08-16] MEDS: NICOTINE POLACRILEX 2 MG GUM BUC PRN ×5 (06:32→21:30)
--- NOTE | 2018-08-16 10:03 | PN ---
S Progress Note Note: Client received melatonin 10 mg last night for sleep. States it was effective, dose increased to Melatonin 10mg po hs.
[2018-08-16] MEDS: LIDOCAINE 5% TOPICAL PATCH TP SCH (10:15)
[2018-08-16] MEDS: IBUPROFEN 600 MG TABLET (FP) PO PRN ×2 (10:16→18:09)
[2018-08-16] MEDS: diphenhydrAMINE HCL 25 MG CAPSULE (FP) PO PRN ×2 (10:17→18:10)
[2018-08-16] MEDS: CHLORHEXIDINE GLUCONATE 0.12% 15ML CUP MM SCH ×2 (10:17→21:26)
[2018-08-16] MEDS: PRENATAL VITAMINS W/ FOLIC ACID TABLET (FP) PO SCH (10:17)
--- NOTE | 2018-08-16 16:49 | PN ---
Psychiatric Progress Note Vital Signs: Vital Signs Period Temp Pulse Resp BP Sys/Glover Pulse Ox Last 24 Hr 98.0 F 83 18-18 111/73 Date of Session: 08/16/18 Chief Complaint:: " I feel sad and i have trouble sleeping." HPI: Patient reports worsening mood and anxiety and difficulty sleeping. ROS: Remarkable for obesity, bronchial asthma, anemia, withdrawal-related seizures in the past and a history of three sections. Current Medications: Active Medications Generic Name Dose Route Start Last Admin Trade Name Freq PRN Reason Stop Dose Admin Acetaminophen 650 mg 08/08/18 14:37 08/15/18 14:17 Tylenol - PO 650 mg Q4H PRN Administration FEVER Al Hydroxide/Mg Hydroxide 30 ml 08/08/18 14:37 Mylanta Oral Suspension - PO Q6H PRN DYSPEPSIA Albuterol Sulfate 2 puff 08/08/18 14:38 Ventolin Hfa Inhaler - IH Q4H PRN ASTHMA Amoxicillin 500 mg 08/10/18 14:00 08/16/18 13:02 Amoxicillin - PO 08/17/18 13:59 500 mg TID REMI Administration Benzocaine 1 applic 08/08/18 15:56 08/14/18 21:31 Anbesol - MM 1 applic Q6H PRN Administration FOR TOOTHACHE Chlorhexidine Gluconate 15 ml 08/10/18 12:30 08/16/18 10:17 Peridex - MM 15 ml BID REMI Administration Colloidal Oatmeal 1 applic 08/09/18 11:29 08/15/18 10:18 Aveeno Soap - TP 1 applic DAILY PRN Administration HYGEINE Diphenhydramine HCl 25 mg 08/09/18 10:05 08/16/18 10:17 Benadryl - PO 25 mg Q4H PRN Administration ANXIETY Eucalyptus/Menthol/Phenol/Sorbitol 1 each 08/08/18 14:37 Cepastat Lozenge - MM Q4H PRN SORE THROAT Guaifenesin 10 ml 08/08/18 14:37 08/15/18 21:24 Robitussin - PO 10 ml Q6H PRN Administration COUGH Ibuprofen 600 mg 08/10/18 12:02 08/16/18 10:16 Motrin - PO 600 mg Q6H PRN Administration Pain level 4-6 Lidocaine 1 patch 08/16/18 10:00 08/16/18 10:15 Lidoderm Patch - TP 1 patch DAILY REMI Administration Lidocaine/Aluminum/Magnesium/Simeth 5 ml 08/09/18 12:00 08/16/18 12:52 Magic Mouthwash *Sjr Formula* - MM Not Given Q6HPO REMI Loperamide HCl 4 mg 08/08/18 14:37 Imodium - PO Q6H PRN DIARRHEA Magnesium Citrate 300 ml 08/08/18 14:37 Citroma - PO Q48H PRN CONSTIPATION Magnesium Hydroxide 30 ml 08/08/18 14:37 Milk Of Magnesia - PO DAILY PRN CONSTIPATION Melatonin 10 mg 08/16/18 22:00 Melatonin PO HS REMI Methadone HCl 80 mg/ Methadone 100 mg 08/15/18 06:00 08/16/18 06:30 HCl 20 mg PO 100 mg DAILY@0600 REMI Administration Miscellaneous 1 each 08/15/18 22:00 08/15/18 21:22 Lidoderm Patch Removal MC 1 each DAILY@2200 REMI Administration Nicotine 14 mg 08/08/18 14:37 08/11/18 10:31 Nicoderm Patch - TD 14 mg DAILY PRN Administration NICOTINE REPLACEMENT RX Nicotine Polacrilex 2 mg 08/08/18 14:37 08/16/18 16:25 Nicorette Gum - BUC 2 mg Q2H PRN Administration NICOTINE REPLACEMENT RX Ondansetron HCl 8 mg 08/10/18 12:01 08/12/18 09:20 Zofran Odt - SL 8 mg Q8H PRN Administration NAUSEA AND/OR VOMITING Multivit/Folic Acid/Iron 1 tab 08/09/18 10:00 08/16/18 10:17 Vitamins (Sjr) - PO 1 tab DAILY REMI Administration Pseudoephedrine/Triprolidine 1 combo 08/08/18 14:37 08/12/18 21:36 Actifed - PO 1 combo TID PRN Administration NASAL CONGESTION Quetiapine Fumarate 100 mg 08/09/18 22:00 08/15/18 21:21 Seroquel - PO 100 mg HS REMI Administration Thiamine HCl 100 mg 08/08/18 22:00 08/15/18 21:24 Vitamin B1 - PO 100 mg HS REMI Administration Trazodone HCl 150 mg 08/16/18 22:00 Desyrel - PO HS REMI Trimethobenzamide HCl 200 mg 08/12/18 18:45 08/13/18 08:59 Tigan Injection - IM 200 mg Q8H PRN Administration NAUSEA Medication(s) Change(s): Yes. Will increase Trazodone 100mg to 150mg HS. Current Side Effect: No Lab tests ordered: No Lab tests reviewed: Yes Provider note:: Patient reports insomnia and worsening anxiety and sadness secondary to not having custody of her children. Patient tearful and reports missing her children after [facility] removed her children from her home.. Patient is currently prescribed seroquel 100mg HS + trazodone 100mg HS. She reports h/o accepting trazodone 150mg HS. Will increase trazodone dose to 150mg HS. Total face to face time:: 25 Mental Status Exam - Mental Status Exam Alert and Oriented to: Time, Place, Person Cognitive Function: Good Patient Appearance: Well Groomed Mood: Sad Affect: Mood Congruent Patient Behavior: Appropriate, Cooperative Speech Pattern: Appropriate Voice Loudness: Normal Thought Process: Intact, Goal Oriented Thought Disorder: Not Present Hallucinations: Denies Suicidal Ideation: Denies Homicidal Ideation: Denies Insight/Judgement: Poor Sleep: Poorly Appetite: Fair Muscle strength/Tone: Normal Gait/Station: Normal Psychiatric Treatment Plan - Problem List (1) Alcohol dependence Current Visit: Yes (2) Cocaine dependence Current Visit: Yes (3) Opioid dependence on agonist therapy Current Visit: Yes (4) Substance-induced sleep disorder Current Visit: Yes (5) Anxiety disorder Current Visit: Yes (6) Substance induced mood disorder Current Visit: Yes
[2018-08-16] MEDS: MELATONIN 5 MG TABLETS PO SCH (21:25)
[2018-08-16] MEDS: THIAMINE HCL 100 MG TABLET (FP) PO SCH (21:25)
[2018-08-16] MEDS: QUEtiapine FUMARATE 100 MG TABLET (FP) PO SCH (21:25)
[2018-08-16] MEDS: LIDOCAINE PATCH REMOVAL MC SCH (21:26)
[2018-08-16] MEDS: traZODone HCL 50 MG TABLET (FP) PO SCH (21:29)
[2018-08-16] MEDS: guaiFENesin 200 MG/10 ML 10 ML UNIT-DOSE CUPS PO PRN (22:22)
[2018-08-17] MEDS: MAG HYDROX/ALH/SMC/DPHA/LIDO 240 ML MOUTHWASH MM SCH ×4 (00:15→17:30)
[2018-08-17] MEDS ORDERED: METHADONE HCL 40 MG DISPERSABLE TABLET ONE (05:36)
[2018-08-17] MEDS ORDERED: METHADONE HCL 10 MG TABLET ONE (05:36)
[2018-08-17] MEDS: AMOXICILLIN 500 MG CAPSULE (FP) PO SCH (06:13)
[2018-08-17] MEDS: ACETAMINOPHEN 325 MG TABLET (FP) PO PRN ×2 (06:13→14:49)
[2018-08-17] MEDS: METHADONE 80 MG, METHADONE 20 MG PO SCH (06:13)
[2018-08-17] MEDS: NICOTINE POLACRILEX 2 MG GUM BUC PRN ×5 (06:14→18:23)
[2018-08-17] MEDS: BENZOCAINE 20 % GEL TUBE MM PRN (06:15)
[2018-08-17] MEDS: LIDOCAINE 5% TOPICAL PATCH TP SCH (10:43)
[2018-08-17] MEDS: diphenhydrAMINE HCL 25 MG CAPSULE (FP) PO PRN ×2 (10:43→14:49)
[2018-08-17] MEDS: PRENATAL VITAMINS W/ FOLIC ACID TABLET (FP) PO SCH (10:43)
[2018-08-17] MEDS: CHLORHEXIDINE GLUCONATE 0.12% 15ML CUP MM SCH ×2 (10:43→21:12)
[2018-08-17] MEDS: IBUPROFEN 600 MG TABLET (FP) PO PRN ×2 (10:45→21:11)
--- NOTE | 2018-08-17 13:31 | PN ---
S Progress Note Note: PATIENT SEEN FOR C/O NASAL STUFFINESS. 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 PATIENT DENIES SINUS PRESSURE, HEADACHE AND SORE THROAT. CURRENT ON ACTIFED TID BUT WOULD PREFER TO TAKE IT AT NIGHT. Vital Signs Temperature 98.0 F 08/17/18 07:24 Pulse Rate 79 08/17/18 07:24 Respiratory Rate 18 08/17/18 07:24 Blood Pressure 115/71 08/17/18 07:24 O2 Sat by Pulse Oximetry (%) PE: ALERT AND ORIENTED X 3 SKIN WARM AND DRY +PERRLA, EOMS INTACT BL +NASAL STUFFINESS EXT FULL ROM AMB AD JOE A/P: NASAL STUFFINESS WILL CHANGE ACTIFED FROM TID TO HS MONITOR CLINICALLY
[2018-08-17] MEDS: THIAMINE HCL 100 MG TABLET (FP) PO SCH (21:08)
[2018-08-17] MEDS: traZODone HCL 50 MG TABLET (FP) PO SCH (21:08)
[2018-08-17] MEDS: QUEtiapine FUMARATE 100 MG TABLET (FP) PO SCH (21:08)
[2018-08-17] MEDS ORDERED: PT OWN MED DRAWER 7, Y5N ONE (21:11)
[2018-08-17] MEDS: MELATONIN 5 MG TABLETS PO SCH (21:12)
[2018-08-17] MEDS: LIDOCAINE PATCH REMOVAL MC SCH (21:12)
[2018-08-17] MEDS: P-EPHED 60MG/TRIPROLIDI 2.5MG TABLET PO SCH (22:05)
[2018-08-18] MEDS: MAG HYDROX/ALH/SMC/DPHA/LIDO 240 ML MOUTHWASH MM SCH ×5 (00:19→23:04)
[2018-08-18] MEDS ORDERED: METHADONE HCL 10 MG TABLET ONE (03:25)
[2018-08-18] MEDS ORDERED: METHADONE HCL 40 MG DISPERSABLE TABLET ONE (03:26)
[2018-08-18] MEDS: METHADONE 80 MG, METHADONE 20 MG PO SCH (06:38)
[2018-08-18] MEDS: NICOTINE POLACRILEX 2 MG GUM BUC PRN ×5 (06:39→21:23)
[2018-08-18] MEDS: PRENATAL VITAMINS W/ FOLIC ACID TABLET (FP) PO SCH (09:17)
[2018-08-18] MEDS: CHLORHEXIDINE GLUCONATE 0.12% 15ML CUP MM SCH ×2 (09:17→21:23)
[2018-08-18] MEDS: LIDOCAINE 5% TOPICAL PATCH TP SCH (09:17)
[2018-08-18] MEDS: diphenhydrAMINE HCL 25 MG CAPSULE (FP) PO PRN ×3 (09:18→18:56)
[2018-08-18] MEDS ORDERED: PT OWN MED DRAWER 7, Y5N ONE (11:46)
[2018-08-18] MEDS: IBUPROFEN 600 MG TABLET (FP) PO PRN ×2 (11:47→22:29)
[2018-08-18] MEDS: BENZOCAINE 20 % GEL TUBE MM PRN ×2 (11:47→21:20)
[2018-08-18] MEDS: THIAMINE HCL 100 MG TABLET (FP) PO SCH (21:20)
[2018-08-18] MEDS: P-EPHED 60MG/TRIPROLIDI 2.5MG TABLET PO SCH (21:20)
[2018-08-18] MEDS: traZODone HCL 50 MG TABLET (FP) PO SCH (21:20)
[2018-08-18] MEDS: QUEtiapine FUMARATE 100 MG TABLET (FP) PO SCH (21:20)
[2018-08-18] MEDS: MELATONIN 5 MG TABLETS PO SCH (21:22)
[2018-08-18] MEDS: LIDOCAINE PATCH REMOVAL MC SCH (21:23)
[2018-08-19] MEDS ORDERED: METHADONE HCL 10 MG TABLET ONE (03:26)
[2018-08-19] MEDS ORDERED: METHADONE HCL 40 MG DISPERSABLE TABLET ONE (03:26)
[2018-08-19] MEDS: METHADONE 80 MG, METHADONE 20 MG PO SCH (06:13)
[2018-08-19] MEDS: MAG HYDROX/ALH/SMC/DPHA/LIDO 240 ML MOUTHWASH MM SCH ×4 (06:14→23:04)
[2018-08-19] MEDS: NICOTINE POLACRILEX 2 MG GUM BUC PRN ×4 (06:14→21:28)
[2018-08-19] MEDS: LIDOCAINE 5% TOPICAL PATCH TP SCH (10:11)
[2018-08-19] MEDS: COLLOIDAL OATMEAL 1 BAR EACH TP PRN (10:12)
[2018-08-19] MEDS: IBUPROFEN 600 MG TABLET (FP) PO PRN (10:13)
[2018-08-19] MEDS: diphenhydrAMINE HCL 25 MG CAPSULE (FP) PO PRN ×2 (10:13→16:45)
[2018-08-19] MEDS: PRENATAL VITAMINS W/ FOLIC ACID TABLET (FP) PO SCH (10:13)
[2018-08-19] MEDS: BENZOCAINE 20 % GEL TUBE MM PRN (10:14)
[2018-08-19] MEDS: CHLORHEXIDINE GLUCONATE 0.12% 15ML CUP MM SCH ×2 (10:16→21:28)
[2018-08-19] MEDS: P-EPHED 60MG/TRIPROLIDI 2.5MG TABLET PO SCH (21:25)
[2018-08-19] MEDS: THIAMINE HCL 100 MG TABLET (FP) PO SCH (21:26)
[2018-08-19] MEDS: LIDOCAINE PATCH REMOVAL MC SCH (21:26)
[2018-08-19] MEDS: MELATONIN 5 MG TABLETS PO SCH (21:26)
[2018-08-19] MEDS: QUEtiapine FUMARATE 100 MG TABLET (FP) PO SCH (21:26)
[2018-08-19] MEDS: traZODone HCL 50 MG TABLET (FP) PO SCH (21:26)
[2018-08-20] MEDS ORDERED: METHADONE HCL 40 MG DISPERSABLE TABLET ONE (03:22)
[2018-08-20] MEDS ORDERED: METHADONE HCL 10 MG TABLET ONE (03:22)
[2018-08-20] MEDS: METHADONE 80 MG, METHADONE 20 MG PO SCH (06:31)
[2018-08-20] MEDS: MAG HYDROX/ALH/SMC/DPHA/LIDO 240 ML MOUTHWASH MM SCH ×4 (06:32→23:39)
[2018-08-20] MEDS: NICOTINE POLACRILEX 2 MG GUM BUC PRN ×4 (06:32→16:44)
[2018-08-20] MEDS: LIDOCAINE 5% TOPICAL PATCH TP SCH (10:08)
[2018-08-20] MEDS ORDERED: PT OWN MED DRAWER 7, Y5N ONE ×2 (10:09→19:52)
[2018-08-20] MEDS: IBUPROFEN 600 MG TABLET (FP) PO PRN ×2 (10:10→22:48)
[2018-08-20] MEDS: diphenhydrAMINE HCL 25 MG CAPSULE (FP) PO PRN ×2 (10:10→16:44)
[2018-08-20] MEDS: CHLORHEXIDINE GLUCONATE 0.12% 15ML CUP MM SCH ×2 (10:10→21:10)
[2018-08-20] MEDS: PRENATAL VITAMINS W/ FOLIC ACID TABLET (FP) PO SCH (10:11)
--- NOTE | 2018-08-20 14:47 | PN ---
S Progress Note Note: Patient is scheduled for discharge tomorrow. Scripts for her medications( Seroquel, Trazadone) will be electronically transmitted to [facility] Pharmacy at [address] [place] [id number]
[2018-08-20] MEDS: THIAMINE HCL 100 MG TABLET (FP) PO SCH (21:10)
[2018-08-20] MEDS: MELATONIN 5 MG TABLETS PO SCH (21:10)
[2018-08-20] MEDS: LIDOCAINE PATCH REMOVAL MC SCH (21:10)
[2018-08-20] MEDS: P-EPHED 60MG/TRIPROLIDI 2.5MG TABLET PO SCH (21:10)
[2018-08-20] MEDS: QUEtiapine FUMARATE 100 MG TABLET (FP) PO SCH (21:10)
[2018-08-20] MEDS: traZODone HCL 50 MG TABLET (FP) PO SCH (21:10)
[2018-08-21] MEDS ORDERED: METHADONE HCL 10 MG TABLET ONE (05:59)
[2018-08-21] MEDS ORDERED: METHADONE HCL 40 MG DISPERSABLE TABLET ONE (05:59)
[2018-08-21] MEDS: METHADONE 80 MG, METHADONE 20 MG PO SCH (06:42)
[2018-08-21] MEDS: NICOTINE POLACRILEX 2 MG GUM BUC PRN ×2 (06:44→09:10)
[2018-08-21] MEDS: MAG HYDROX/ALH/SMC/DPHA/LIDO 240 ML MOUTHWASH MM SCH (07:10)
[2018-08-21 07:23] VITALS: BP 121/79; PULSE 83; TEMP 97.7
[2018-08-21] MEDS: CHLORHEXIDINE GLUCONATE 0.12% 15ML CUP MM SCH (09:09)
[2018-08-21] MEDS: LIDOCAINE 5% TOPICAL PATCH TP SCH (09:09)
[2018-08-21] MEDS: PRENATAL VITAMINS W/ FOLIC ACID TABLET (FP) PO SCH (09:09)
[2018-08-21] MEDS: IBUPROFEN 600 MG TABLET (FP) PO PRN (09:11)
--- NOTE | 2018-08-21 10:28 | PN ---
[facility] Progress Note Note: PT COMPLETED REHAB AND DISCHARGED TODAY. PT MET WITH HER COUNSELOR AND HAS BEEN REFERRED TO [facility] [place], [place] FOR CD AFTERCARE. PT REPORTS NO CURRENT PCP. PT WAS INSTRUCTED TO EXPLORE PRIMARY CARE WHILE AT [facility] OR SOON AFTER DISCHARGE. ALERT O X 3. DENIES S.H/I. Home Medications Medication Instructions Recorded Methadone [Dolophine -] 100 mg PO DAILY 04/13/18 Zolpidem Tartrate [Ambien] 10 mg PO HS 04/13/18 Quetiapine Fumarate [Seroquel -] 50 mg PO HS 08/05/18 Quetiapine Fumarate [Seroquel -] 300 mg PO HS 08/05/18 Albuterol Sulfate Inhaler - 2 inh PO Q4H #1 inhaler 08/07/18 [Ventolin HFA Inhaler -] Quetiapine Fumarate [Seroquel] 100 mg PO HS #30 tablet 08/20/18 traZODone HCL [Desyrel -] 100 mg PO HS #30 tablet 08/20/18 NAD MEDICALLY STABLE PLAN:FOLLOW UP WITH CD AFTERCARE RECOMMENDED ABOVE.
== END 2018-08-21 10:08 | disposition home or self-care (01) | DRG 772 ==
LOC: YASAS 13:02 → Y3E 13:04
PROVIDERS: ADMIT Neuromusculoskeletal Medicine & OMM; ATTEND Neuromusculoskeletal Medicine & OMM
PROC: HZ42ZZZ Group Counseling for Substance Abuse Treatment, Cognitive-Behavioral (ICD-10-PCS; principal; 2018-08-08)
DX: F10.20 Alcohol dependence, uncomplicated (principal); F11.20 Opioid dependence, uncomplicated; F14.20 Cocaine dependence, uncomplicated; F19.24 Other psychoactive substance dependence with psychoactive substance-induced mood disorder; F19.282 Other psychoactive substance dependence with psychoactive substance-induced sleep disorder; F41.9 Anxiety disorder, unspecified; R09.81 Nasal congestion; L72.8 Other follicular cysts of the skin and subcutaneous tissue; K05.10 Chronic gingivitis, plaque induced; K02.9 Dental caries, unspecified; R11.0 Nausea; M54.5 Low back pain; G89.29 Other chronic pain; G47.00 Insomnia, unspecified; J45.909 Unspecified asthma, uncomplicated; E66.9 Obesity, unspecified; Z68.41 Body mass index [BMI] 40.0-44.9, adult; Z86.69 Personal history of other diseases of the nervous system and sense organs
CPT/HCPCS: Q0162

== ENCOUNTER 2023-06-02 18:45 | Inpatient (IN) | payer OTHER ==
[2023-06-02 20:43] VITALS: BMI 50.3
[2023-06-02] MEDS ORDERED: BENZOCAINE/MENTHOL (CHLORASEPTIC ) LOZENGE MM PRN (21:16)
[2023-06-02] MEDS ORDERED: MAGNESIUM HYDROX 2400MG/30ML ORAL SUSPENSION 30 ML CUP PO PRN (21:16)
[2023-06-02] MEDS ORDERED: guaiFENesin 600 MG TABLET.ER (FP) PO PRN (21:16)
[2023-06-02] MEDS ORDERED: DICYCLOMINE HCL 10 MG CAPSULE PO PRN (21:16)
[2023-06-02] MEDS ORDERED: POLYETHYLENE GLYCOL (HEALTHYLAX) 3350 17 GM PACKET PO PRN (21:16)
[2023-06-02] MEDS ORDERED: NALOXONE HCL 0.4 MG/ML VIAL IM PRN (21:16)
[2023-06-02] MEDS ORDERED: LOPERAMIDE HCL 2 MG CAPSULE PO PRN (21:16)
[2023-06-02] MEDS ORDERED: ONDANSETRON *ODT* 4 MG TABLET SL PRN (21:16)
[2023-06-02] MEDS ORDERED: NALOXONE HCL (KLOXXADO) 8 MG SPRAY NS PRN (21:16)
[2023-06-02] MEDS ORDERED: BENZONATATE 200 MG CAPSULE PO PRN (21:16)
[2023-06-02] MEDS ORDERED: MAG HYDROX/AL HYDROX/SIMETH 30 ML UNIT-DOSE CUP PO PRN (21:16)
[2023-06-02] MEDS ORDERED: BISMUTH SUBSALICYLATE 524 MG/30 ML PO PRN (21:16)
[2023-06-02] MEDS ORDERED: IBUPROFEN 400 MG TABLET (FP) PO PRN (21:16)
[2023-06-02] MEDS ORDERED: ACETAMINOPHEN 325 MG TABLET (FP) PO PRN (21:16)
[2023-06-02] MEDS: chlordiazePOXIDE HCL 25 MG CAPSULE PO PRN (21:30)
[2023-06-02] MEDS: ALBUTEROL SO4 HFA INHALER IH SCH (23:47)
[2023-06-02] MEDS: THIAMINE HCL 100 MG TABLET (FP) PO SCH (23:48)
[2023-06-02] MEDS: MELATONIN 5 MG TABLETS PO SCH (23:49)
[2023-06-02] MEDS: IBUPROFEN 600 MG TABLET (FP) PO PRN (23:49)
[2023-06-02] MEDS: chlordiazePOXIDE HCL 25 MG CAPSULE PO SCH (23:49)
[2023-06-02] MEDS: NICOTINE POLACRILEX 4 MG GUM BUC PRN (23:52)
[2023-06-03] MEDS: ALBUTEROL SO4 HFA INHALER IH SCH ×6 (01:25→22:28)
[2023-06-03] MEDS: chlordiazePOXIDE HCL 25 MG CAPSULE PO SCH ×4 (05:30→22:23)
[2023-06-03] MEDS: chlordiazePOXIDE HCL 25 MG CAPSULE PO PRN (06:31)
[2023-06-03 09:44] LABS: CHLORIDE 104 mmol/L (98-107); POTASSIUM 4.2 mmol/L (3.5-5.1); SODIUM 139 mmol/L (136-145)
[2023-06-03 09:48] LABS: HEMATOCRIT 41.5 % (32.4-45.2); HEMOGLOBIN 13.8 GM/dL (10.7-15.3); MCH 32.2 pg (25.7-33.7); MCHC 33.2 g/dl (32.0-36.0); MEAN CELL VOLUME 96.7 fl (80-96); MEAN PLT VOLUME 9.5 fl (7.5-11.1); PLATELET COUNT 228 10^3/uL (134-434); RBC 4.29 M/mm3 (3.60-5.2); WHITE BLOOD COUNT 10.6 K/mm3 (4.0-10.0)
[2023-06-03 10:08] LABS: ALBUMIN 3.1 g/dl (3.4-5.0); ANION GAP 8 mmol/L (4-13); BLOOD UREA NITROGEN 18.5 mg/dL (7-18); CO2 28 mmol/L (21-32); GLUCOSE,RANDOM 104 mg/dL (74-106)
[2023-06-03 10:11] LABS: CREATININE 0.6 mg/dL (0.55-1.3); SGOT/AST 14 U/L (15-37); SGPT/ALT 25 U/L (13-61)
[2023-06-03] MEDS ORDERED: hydrOXYzine PAMOATE 25 MG CAPSULE (FP) PO PRN (10:11)
[2023-06-03 10:13] LABS: BILIRUBIN,TOTAL 0.3 mg/dL (0.2-1); TOT PROT 6.9 g/dl (6.4-8.2)
[2023-06-03 10:14] LABS: ALK PHOS 121 U/L (45-117)
[2023-06-03] MEDS: PRENATAL VITAMINS W/ FOLIC ACID TABLET (FP) PO SCH (10:15)
[2023-06-03] MEDS: NICOTINE 14 MG/24 HOURS TOPICAL PATCH TD SCH (10:16)
[2023-06-03] MEDS: NICOTINE POLACRILEX 4 MG GUM BUC PRN ×3 (10:17→21:22)
[2023-06-03] MEDS: busPIRone HCL 10 MG TABLET (FP) PO SCH ×2 (10:58→22:25)
[2023-06-03] MEDS: methaDONE HCL 40 MG DISPERSABLE TABLET PO SCH (10:58)
[2023-06-03] MEDS: QUEtiapine FUMARATE 100 MG TABLET (FP) PO SCH (22:22)
[2023-06-03] MEDS: THIAMINE HCL 100 MG TABLET (FP) PO SCH (22:22)
[2023-06-03] MEDS: MELATONIN 5 MG TABLETS PO SCH (22:28)
[2023-06-04] MEDS: chlordiazePOXIDE HCL 25 MG CAPSULE PO SCH ×4 (05:09→22:24)
[2023-06-04] MEDS: ALBUTEROL SO4 HFA INHALER IH SCH ×6 (05:11→22:06)
[2023-06-04] MEDS: methaDONE HCL 40 MG DISPERSABLE TABLET PO SCH (05:16)
[2023-06-04] MEDS: PRENATAL VITAMINS W/ FOLIC ACID TABLET (FP) PO SCH (10:30)
[2023-06-04] MEDS: NICOTINE 14 MG/24 HOURS TOPICAL PATCH TD SCH (10:30)
[2023-06-04] MEDS: busPIRone HCL 10 MG TABLET (FP) PO SCH ×2 (10:31→22:07)
[2023-06-04] MEDS: NICOTINE POLACRILEX 4 MG GUM BUC PRN ×2 (15:35→17:58)
[2023-06-04] MEDS: THIAMINE HCL 100 MG TABLET (FP) PO SCH (22:24)
[2023-06-04] MEDS: MELATONIN 5 MG TABLETS PO SCH (22:24)
[2023-06-04] MEDS: QUEtiapine FUMARATE 100 MG TABLET (FP) PO SCH (22:24)
[2023-06-05] MEDS ORDERED: chlordiazePOXIDE HCL 10 MG CAPSULE PO PRN
[2023-06-05] MEDS: ALBUTEROL SO4 HFA INHALER IH SCH ×3 (02:00→09:09)
[2023-06-05] MEDS: chlordiazePOXIDE HCL 10 MG CAPSULE PO SCH ×4 (05:17→22:20)
[2023-06-05] MEDS: methaDONE HCL 40 MG DISPERSABLE TABLET PO SCH (06:05)
[2023-06-05] MEDS: NICOTINE POLACRILEX 4 MG GUM BUC PRN ×4 (09:09→23:52)
[2023-06-05] MEDS: NICOTINE 14 MG/24 HOURS TOPICAL PATCH TD SCH (09:44)
[2023-06-05] MEDS ORDERED: COLLOIDAL OATMEAL 1 BAR EACH TP PRN (10:01)
[2023-06-05] MEDS ORDERED: ALBUTEROL SO4 HFA INHALER IH PRN (10:03)
[2023-06-05] MEDS: PRENATAL VITAMINS W/ FOLIC ACID TABLET (FP) PO SCH (10:22)
[2023-06-05] MEDS: busPIRone HCL 10 MG TABLET (FP) PO SCH ×2 (10:22→22:20)
[2023-06-05] MEDS: IBUPROFEN 600 MG TABLET (FP) PO PRN (17:15)
[2023-06-05] MEDS: THIAMINE HCL 100 MG TABLET (FP) PO SCH (22:20)
[2023-06-05] MEDS: QUEtiapine FUMARATE 100 MG TABLET (FP) PO SCH (22:20)
[2023-06-05] MEDS: MELATONIN 5 MG TABLETS PO SCH (22:21)
[2023-06-06] MEDS: methaDONE HCL 40 MG DISPERSABLE TABLET PO SCH (05:27)
[2023-06-06] MEDS: chlordiazePOXIDE HCL 10 MG CAPSULE PO SCH ×2 (05:28→17:22)
[2023-06-06] MEDS: IBUPROFEN 600 MG TABLET (FP) PO PRN ×2 (08:29→19:08)
[2023-06-06] MEDS: busPIRone HCL 10 MG TABLET (FP) PO SCH ×2 (10:21→22:30)
[2023-06-06] MEDS: PRENATAL VITAMINS W/ FOLIC ACID TABLET (FP) PO SCH (10:21)
[2023-06-06] MEDS: NICOTINE POLACRILEX 4 MG GUM BUC PRN ×2 (10:23→22:32)
[2023-06-06] MEDS: NICOTINE 14 MG/24 HOURS TOPICAL PATCH TD SCH (12:01)
[2023-06-06] MEDS: QUEtiapine FUMARATE 100 MG TABLET (FP) PO SCH (22:30)
[2023-06-06] MEDS: MELATONIN 5 MG TABLETS PO SCH (22:30)
[2023-06-06] MEDS: THIAMINE HCL 100 MG TABLET (FP) PO SCH (22:31)
[2023-06-07] MEDS ORDERED: chlordiazePOXIDE HCL 10 MG CAPSULE PO ONE (05:00)
[2023-06-07] MEDS: methaDONE HCL 40 MG DISPERSABLE TABLET PO SCH (05:45)
[2023-06-07] MEDS: busPIRone HCL 10 MG TABLET (FP) PO SCH (09:17)
[2023-06-07] MEDS: PRENATAL VITAMINS W/ FOLIC ACID TABLET (FP) PO SCH (09:17)
[2023-06-07] MEDS: NICOTINE 14 MG/24 HOURS TOPICAL PATCH TD SCH (09:18)
[2023-06-07 09:27] VITALS: BP 119/54; PULSE 94; RESP 18; TEMP 98.2
[2023-06-07] MEDS: IBUPROFEN 600 MG TABLET (FP) PO PRN (11:46)
[2023-06-07] MEDS: NICOTINE POLACRILEX 4 MG GUM BUC PRN (11:47)
== END 2023-06-07 12:50 | disposition home or self-care (01) | DRG 773 ==
LOC: YASAS 18:45 → Y6N 22:28
PROVIDERS: ADMIT Allergy & Immunology; ATTEND Surgery
PROC: HZ2ZZZZ Detoxification Services for Substance Abuse Treatment (ICD-10-PCS; principal; 2023-06-02)
DX: F10.230 Alcohol dependence with withdrawal, uncomplicated (principal); F11.20 Opioid dependence, uncomplicated; F14.20 Cocaine dependence, uncomplicated; F12.20 Cannabis dependence, uncomplicated; F17.213 Nicotine dependence, cigarettes, with withdrawal; F41.9 Anxiety disorder, unspecified; F25.9 Schizoaffective disorder, unspecified; F19.982 Other psychoactive substance use, unspecified with psychoactive substance-induced sleep disorder; F19.94 Other psychoactive substance use, unspecified with psychoactive substance-induced mood disorder; J45.20 Mild intermittent asthma, uncomplicated; R00.0 Tachycardia, unspecified; Z86.69 Personal history of other diseases of the nervous system and sense organs; Z62.810 Personal history of physical and sexual abuse in childhood; Z91.51 Personal history of suicidal behavior
CPT/HCPCS: 36415; 80053; 80307; 81025; 85027; 86780; 87635; 93005; 93010